=== PATIENT | male | born 1930 | race Caucasian/White ===

== ENCOUNTER 2017-01-15 10:01 | Emergency (ER) | payer MEDICARE ==
[~2017-01-15] VITALS: Ht 167.6 cm; Wt 60.0 kg
[~2017-01-15 10:01] MED LIST: 1-ME1LIQ PO; ATOR40TA PO; FERR324T4 PO; GLUCTAB PO; LOSA25TA31 PO; METO50TA PO; OMEP20TA PO; SUCR1TAB PO
[2017-01-15 10:06] VITALS: BP 127/64; PULSE 100; RESP 24; TEMP 98.4; O2SAT 94
[2017-01-15] MEDS ORDERED: AMLO2.5T PO (11:11)
[2017-01-15] MEDS ORDERED: OMEP20TA93 PO (11:11)
[2017-01-15] MEDS ORDERED: ATOR80TA45 PO (11:11)
[2017-01-15] MEDS ORDERED: FERR325C PO (11:11)
[2017-01-15] MEDS ORDERED: SUCR1TAB PO (11:11)
[2017-01-15] MEDS ORDERED: METO50TA PO (11:11)
[2017-01-15] MEDS ORDERED: LOSA25TA PO (11:11)
[2017-01-15] MEDS ORDERED: ALLE60TA PO (11:17)
--- NOTE | 2017-01-15 11:18 | PD ---
HPI . Nosebleed Chief Complaint: Nosebleed Time Seen by Provider: 11:07 Travel History International Travel<30 days: No Contact w/Intl Traveler<30days: No Traveled to known affect area: No History of Present Illness HPI This patient presents with a chief complaint of epistaxis. Onset was yesterday. He is bleeding from the right near. The bleeding has waxed and waned. It has been pretty mild. He states that he has had an associated cold with some rhinorrhea and coughing. He does not describe any purulent rhinorrhea or sputum production. He has not been running fever. PFSH Past Medical History Hx Anticoagulant Therapy: Yes Arthritis: No Asthma: No Blood Disorders: No Anxiety: No Depression: No Heart Rhythm Problems: No Cancer: Yes (prostate (2001)) Cardiac Catheterization: No Cardiovascular Problems: Yes (HTN) High Cholesterol: Yes Chemotherapy: No Chest Pain: No Congestive Heart Failure: No COPD: No Cerebrovascular Accident: No Diabetes: Yes Patient Takes Glucophage: No Diminished Hearing: No Endocrine: Yes GERD: Yes Glaucoma: No Genitourinary: Yes (hematuria) Headaches: No Hepatitis: No Hiatal Hernia: Yes Hypertension: Yes Immune Disorder: No Kidney Stones: No Musculoskeletal: No Neurologic: No Psychiatric: No Reproductive: Yes (prostate cancer) Respiratory: No Myocardial Infarction: No Radiation Therapy: Yes Renal Failure: No Seizures: No Sickle Cell Disease: No Sleep Apnea: No Thyroid Disease: No Ulcer: No Past Surgical History Surgical History: No Previous Surgery AICD: No Coronary Artery Bypass Graft: No Pacemaker: No Other Surgery: No Social History Alcohol Use: Yes (OCC 1/2 GLASS OF WINE) Tobacco Use: No Substance Use: No Allergies-Medications (Allergen,Severity, Reaction): Coded Allergies: No Known Allergies (Verified Adverse Reaction, Unknown, 01/15/17) Reported Meds & Prescriptions Reported Meds & Active Scripts Active Reported Omeprazole 20 Mg Tab 20 Mg PO DAILY Sucralfate 1 Gram Tab 1 Gm PO TID on empty stomach Metoprolol Tartrate 50 Mg Tab 50 Mg PO BID Atorvastatin (Atorvastatin Calcium) 80 Mg Tab 80 Mg PO HS Amlodipine (Amlodipine Besylate) 2.5 Mg Tab 2.5 Mg PO DAILY Losartan (Losartan Potassium) 25 Mg Tab 25 Mg PO DAILY Iron (Ferrous Sulfate) 325 Mg Cap 325 Mg PO DAILY Review of Systems Except as stated in HPI: all other systems reviewed are Neg General / Constitutional: No: Fever, Chills HENT: Positive: Congestion, Nosebleed Respiratory: Positive: Cough Physical Exam Narrative GENERAL: Elderly patient who is awake and alert and in no acute distress. SKIN: Warm and dry. Good color and turgor. HEAD: Normocephalic/atraumatic. EYES: Pupils are equal. Extraocular movements are intact. ENT: No evidence of bleeding at this time. NECK: Supple. CARDIOVASCULAR: Heart sounds are normal. RESPIRATORY: Lungs are clear with full air movement throughout. MUSCULOSKELETAL: Atraumatic. NEUROLOGICAL: Nonfocal. PSYCHIATRIC: Appropriate mood and affect. Data Data Last Documented VS Vital Signs Date Time Temp Pulse Resp B/P (MAP) Pulse Ox O2 Delivery O2 Flow Rate FiO2 01/15/17 10:06 98.4 100 24 127/64 (85) 94 Room Air [facility] Medical Decision Making Medical Screen Exam Complete: Yes Emergency Medical Condition: Yes Differential Diagnosis Differential diagnosis includes but is not limited to epistaxis due to an upper respiratory infection, coagulopathy, local trauma, nasal fracture Narrative Course This patient presents with epistaxis associated with an upper respiratory infection. He has no bleeding currently. I will discharge him with instructions to take an antihistamine and to take inside of his nose with Vaseline at least once a day at bedtime. Return for bleeding which is uncontrolled by direct pressure for 10 minutes. Diagnosis Primary Impression: Epistaxis Additional Impression: Upper respiratory infection Qualified Codes: J06.9 - Acute upper respiratory infection, unspecified Patient Instructions: Epistaxis (DC), General Instructions, Upper Respiratory Infection (DC) Additional Instructions: Use a Q-tip to put some Vaseline on the inside of your nose every night at bedtime the bleeding has completely stopped. Med/Other Pt SpecificInfo: Prescription(s) given Scripts Fexofenadine (Terrie Allergy) 60 Mg Tab 60 MG PO BID for Allergy Management, #60 TAB 0 Refills Prov: Carito Reese MD 01/15/17 Disposition: 01 DISCHARGE HOME Condition: Stable Carito Reese MD Jan 15, 2017 11:18
== END 2017-01-15 11:52 | disposition home or self-care (01) ==
LOC: NEPE 10:01
DX: R04.0 Epistaxis (principal); J06.9 Acute upper respiratory infection, unspecified; I10 Essential (primary) hypertension; E78.00 Pure hypercholesterolemia, unspecified; E11.9 Type 2 diabetes mellitus without complications; K21.9 Gastro-esophageal reflux disease without esophagitis; Z85.46 Personal history of malignant neoplasm of prostate; Z79.899 Other long term (current) drug therapy
CPT/HCPCS: 99282

== ENCOUNTER 2017-02-13 14:49 | Inpatient (IN) | payer MEDICARE ==
[~2017-02-13] VITALS: Ht 170.2 cm; Wt 61.4 kg
[~2017-02-13 14:49] MED LIST changes: -1-ME1LIQ PO; +ALLE60TA PO; +AMLO2.5T PO; -ATOR40TA PO; +ATOR80TA45 PO; -FERR324T4 PO; +FERR325C PO; -GLUCTAB PO; +LOSA25TA PO; -LOSA25TA31 PO; -OMEP20TA PO; +OMEP20TA93 PO
--- NOTE | 2017-02-13 15:26 | PD ---
HPI Chief Complaint: fall, head injury, hip injury Time Seen by Provider: 15:21 Travel History International Travel<30 days: No Contact w/Intl Traveler<30days: No Traveled to known affect area: No History of Present Illness HPI 86-year-old male patient presents to the ER brought in by his son, apparently he had been helping his son move something when he lost balance and fell, is complaining of right hip pains, and is shortened, had hit his head but had no loss consciousness according to his son. He currently denies any other issues or injuries. Modifying Factors: None Associated Signs & Symptoms: Lost balance and fall, right hip injury, head injury Risk Factors: Elderly PFSH Past Medical History Hx Anticoagulant Therapy: Yes Arthritis: No Asthma: No Blood Disorders: No Anxiety: No Depression: No Heart Rhythm Problems: No Cancer: Yes (prostate (2001)) Cardiac Catheterization: No Cardiovascular Problems: Yes (HTN) High Cholesterol: Yes Chemotherapy: No Chest Pain: No Congestive Heart Failure: No COPD: No Cerebrovascular Accident: No Diabetes: Yes Diminished Hearing: No Endocrine: Yes GERD: Yes Glaucoma: No Genitourinary: Yes (hematuria) Headaches: No Hepatitis: No Hiatal Hernia: Yes Hypertension: Yes Immune Disorder: No Kidney Stones: No Musculoskeletal: No Neurologic: No Psychiatric: No Reproductive: Yes (prostate cancer) Respiratory: No Myocardial Infarction: No Radiation Therapy: Yes Renal Failure: No Seizures: No Sickle Cell Disease: No Sleep Apnea: No Thyroid Disease: No Ulcer: No Past Surgical History AICD: No Coronary Artery Bypass Graft: No Pacemaker: No Other Surgery: No Social History Alcohol Use: Yes (OCC 1/2 GLASS OF WINE) Tobacco Use: No Substance Use: No Allergies-Medications (Allergen,Severity, Reaction): Coded Allergies: No Known Allergies (Verified Adverse Reaction, Unknown, 02/13/17) Reported Meds & Prescriptions Reported Meds & Active Scripts Active Reported Ferrous Sulfate 325 Mg (65 Mg Iron) Tablet 325 Mg PO DAILY Omeprazole 20 Mg Tab 20 Mg PO DAILY Sucralfate 1 Gram Tab 1 Gm PO TID on empty stomach Metoprolol Tartrate 50 Mg Tab 50 Mg PO BID Atorvastatin (Atorvastatin Calcium) 80 Mg Tab 80 Mg PO HS Amlodipine (Amlodipine Besylate) 2.5 Mg Tab 2.5 Mg PO DAILY Losartan (Losartan Potassium) 25 Mg Tab 25 Mg PO DAILY Review of Systems Except as stated in HPI: all other systems reviewed are Neg Physical Exam Narrative GENERAL: Pleasant elderly white male patient currently in mild distress. Awake and oriented 3. SKIN: Focused skin assessment warm/dry. HEAD: Small 1 cm abrasion to the right forehead. Normocephalic. EYES: Pupils equal and round. No scleral icterus. No injection or drainage. ENT: No nasal bleeding or discharge. Mucous membranes pink and moist. NECK: Trachea midline. No JVD. CARDIOVASCULAR: Regular rate and rhythm. No murmur appreciated. RESPIRATORY: No accessory muscle use. Clear to auscultation. Breath sounds equal bilaterally. GASTROINTESTINAL: Abdomen soft, non-tender, nondistended. Hepatic and splenic margins not palpable. MUSCULOSKELETAL: No obvious deformities. No clubbing. No cyanosis. No edema. Pelvis: Stable, tender to palpation of the right hip, and there is notable shortening of the right limb. NEUROLOGICAL: Awake and alert. No obvious cranial nerve deficits. Motor grossly within normal limits. Normal speech. PSYCHIATRIC: Appropriate mood and affect; insight and judgment normal. Data Data Last Documented VS Vital Signs Date Time Temp Pulse Resp B/P (MAP) Pulse Ox O2 Delivery O2 Flow Rate FiO2 02/13/17 17:46 94 02/13/17 17:45 72 16 153/83 (106) Room Air Orders Orders Electrocardiogram (02/13/17 15:21) Complete Blood Count With Diff (02/13/17 15:21) Comprehensive Metabolic Panel (02/13/17 15:21) Prothrombin Time / Inr (Pt) (02/13/17 15:21) Act Partial Throm Time (Ptt) (02/13/17 15:21) Urinalysis - C+S If Indicated (02/13/17 15:21) Chest, Single Ap (02/13/17 15:21) Hip, Uni(Ap&Lat) W Ap Pelvis (02/13/17 15:21) Iv Access Insert/Monitor (02/13/17 15:21) Oximetry (02/13/17 15:21) Ecg Monitoring (02/13/17 15:21) Sodium Chloride 0.9% Flush (Ns Flush) (02/13/17 15:30) Ct Brain W/O Iv Contrast(Rout) (02/13/17 15:21) Morphine Inj (Morphine Inj) (02/13/17 16:30) Ondansetron Inj (Zofran Inj) (02/13/17 16:30) Lidocai-Epi 1%-1:100,000 Inj (Xylocaine- (02/13/17 17:00) Admit Order (Ed Use Only) (02/13/17 18:20) Labs Laboratory Tests Test 02/13/17 15:44 02/13/17 16:40 White Blood Count 3.6 TH/MM3 Red Blood Count 2.54 MIL/MM3 Hemoglobin 7.9 GM/DL Hematocrit 24.3 % Mean Corpuscular Volume 95.7 FL Mean Corpuscular Hemoglobin 31.0 PG Mean Corpuscular Hemoglobin Concent 32.4 % Red Cell Distribution Width 22.3 % Platelet Count 87 TH/MM3 Mean Platelet Volume 8.2 FL Neutrophils (%) (Auto) 84.9 % Lymphocytes (%) (Auto) 8.7 % Monocytes (%) (Auto) 3.4 % Eosinophils (%) (Auto) 1.2 % Basophils (%) (Auto) 1.8 % Neutrophils # (Auto) 3.0 TH/MM3 Lymphocytes # (Auto) 0.3 TH/MM3 Monocytes # (Auto) 0.1 TH/MM3 Eosinophils # (Auto) 0.0 TH/MM3 Basophils # (Auto) 0.1 TH/MM3 CBC Comment AUTO DIFF Differential Comment AUTO DIFF CONFIRMED Platelet Estimate LOW Platelet Morphology Comment NORMAL Ovalocytes 1+ Acanthocytes 1+ Prothrombin Time 16.2 SEC Prothromb Time International Ratio 1.6 RATIO Activated Partial Thromboplast Time 25.8 SEC Blood Urea Nitrogen 22 MG/DL Creatinine 0.92 MG/DL Random Glucose 130 MG/DL Total Protein 6.4 GM/DL Albumin 3.5 GM/DL Calcium Level 8.3 MG/DL Alkaline Phosphatase 96 U/L Aspartate Amino Transf (AST/SGOT) 21 U/L Alanine Aminotransferase (ALT/SGPT) 18 U/L Total Bilirubin 1.3 MG/DL Sodium Level 140 MEQ/L Potassium Level 4.6 MEQ/L Chloride Level 106 MEQ/L Carbon Dioxide Level 25.3 MEQ/L Anion Gap 9 MEQ/L Estimat Glomerular Filtration Rate 78 ML/MIN Urine Color YELLOW Urine Turbidity CLEAR Urine pH 6.5 Urine Specific [place] 1.017 Urine Protein TRACE mg/dL Urine Glucose (UA) NEG mg/dL Urine Ketones NEG mg/dL Urine Occult Blood LARGE Urine Nitrite NEG Urine Bilirubin NEG Urine Urobilinogen 2.0 MG/DL Urine Leukocyte Esterase NEG Urine RBC 77 /hpf Urine WBC 1 /hpf Urine Mucus FEW /lpf Microscopic Urinalysis Comment CATH-CULT NOT IND MDM Medical Decision Making Medical Screen Exam Complete: Yes Emergency Medical Condition: Yes Medical Record Reviewed: Yes Interpretation(s) Laboratory Tests Test 02/13/17 15:44 02/13/17 16:40 White Blood Count 3.6 TH/MM3 (4.0-11.0) Red Blood Count 2.54 MIL/MM3 (4.50-5.90) Hemoglobin 7.9 GM/DL (13.0-17.0) Hematocrit 24.3 % (39.0-51.0) Red Cell Distribution Width 22.3 % (11.6-17.2) Platelet Count 87 TH/MM3 (150-450) Neutrophils (%) (Auto) 84.9 % (16.0-70.0) Lymphocytes (%) (Auto) 8.7 % (9.0-44.0) Lymphocytes # (Auto) 0.3 TH/MM3 (1.0-4.8) Platelet Estimate LOW (NORMAL) Ovalocytes 1+ (NORMAL) Acanthocytes 1+ (NORMAL) Prothrombin Time 16.2 SEC (9.8-11.6) Blood Urea Nitrogen 22 MG/DL (7-18) Random Glucose 130 MG/DL (74-106) Calcium Level 8.3 MG/DL (8.5-10.1) Total Bilirubin 1.3 MG/DL (0.2-1.0) Estimat Glomerular Filtration Rate 78 ML/MIN (>89) Urine Occult Blood LARGE (NEG) Urine RBC 77 /hpf (0-3) Urine Mucus FEW /lpf (OCC) Last 24 hours Impressions Hip and Pelvis X-Ray 02/13/17 1521 Signed Impressions: Service Date/Time: Monday, February 13, 2017 16:23 - CONCLUSION: Fractured right femoral neck. Raheem Jarvis MD Head CT 02/13/171520 Signed Impressions: Service Date/Time: Monday, February 13, 2017 17:00 - CONCLUSION: 1. Generalized atrophy. 2. No evidence of acute infarct, hemorrhage, mass or edema. 3. Mucosal thickening right maxillary sinus. Raheem Jarvis MD Chest X-Ray 02/13/17 1521 Signed Impressions: Service Date/Time: Monday, February 13, 2017 16:23 - CONCLUSION: 1. Hypoaerated lungs with interstitial disease characteristic of restrictive lung disease and pulmonary fibrosis. 2. No evidence of consolidating airspace disease. Raheem Jarvis MD Differential Diagnosis Fall, rule out intracranial injuries versus hip fractures versus contusions versus concussion Narrative Course X-ray shows a right hip fracture. CAT scan the brain did not show any signs of acute intracranial injuries. Case was discussed with Dr. Barrett who would like the patient to be medically admitted for further treatment. 5 pound box traction and nothing by mouth after midnight. Case was discussed with Dr. Aguayo for admission. Diagnosis Primary Impression: Fall at home Additional Impressions: Closed head injury Hip injury Admitting Information Admitting Physician Requests: Admit Gerri Aparicio MD Feb 13, 2017 15:26
[2017-02-13] MEDS ORDERED: SODIUM CHLORIDE 0.9% FLUSH 10 ML FLUSH IVF PRN (15:30)
[2017-02-13] MEDS ORDERED: FERR325T18 PO (15:40)
[2017-02-13 15:47] VITALS: BP 119/54; PULSE 76; RESP 18; O2SAT 96
[2017-02-13 15:53] VITALS: BP 119/54; PULSE 76; RESP 18; O2SAT 96
[2017-02-13 16:08] LABS: BASOPHIL # 0.1 TH/MM3 (0-0.2); BASOPHIL % 1.8 % (0.0-2.0); EOSINOPHIL % 1.2 % (0.0-4.0); HEMATOCRIT 24.3 % (39.0-51.0); LYMPH % 8.7 % (9.0-44.0); LYMPHOCYTE # 0.3 TH/MM3 (1.0-4.8); MEAN CELL VOLUME 95.7 FL (80.0-100.0); MEAN CORPUSCULAR HGB CONC 32.4 % (32.0-36.0); MONO % 3.4 % (0.0-8.0); NEUT % 84.9 % (16.0-70.0); PLATELET COUNT 87 TH/MM3 (150-450); RED BLOOD COUNT 2.54 MIL/MM3 (4.50-5.90); RED CELL DISTRIBUTION WIDTH 22.3 % (11.6-17.2); WHITE BLOOD COUNT 3.6 TH/MM3 (4.0-11.0)
[2017-02-13 16:12] LABS: HEMO FLAGS AUTO DIFF
[2017-02-13 16:28] LABS: ALT (GPT) 18 U/L (12-78); ANION GAP 9 MEQ/L (5-15); AST (GOT) 21 U/L (15-37); BICARBONATE 25.3 MEQ/L (21.0-32.0); BLOOD UREA NITROGEN 22 MG/DL (7-18); CHLORIDE 106 MEQ/L (98-107); GLOMERULAR FILTRATION RATE 78 ML/MIN (>89); POTASSIUM 4.6 MEQ/L (3.5-5.1); SODIUM (NA) 140 MEQ/L (136-145)
[2017-02-13 16:30] LABS: ALKALINE PHOSPHATASE 96 U/L (45-117); TOTAL BILIRUBIN ADULT 1.3 MG/DL (0.2-1.0)
[2017-02-13] MEDS ORDERED: MORPHINE SULFATE 2 MG/ML INJ IV PUSH ONE (16:30)
[2017-02-13] MEDS ORDERED: ONDANSETRON HCL 4 MG/2 ML VIAL IV PUSH ONE (16:30)
[2017-02-13 16:41] LABS: APTT (PATIENT) 25.8 SEC (24.3-30.1); INTERNATIONAL NORMALIZED RATIO 1.6 RATIO; PROTHROMBIN TIME - PATIENT 16.2 SEC (9.8-11.6)
--- NOTE | 2017-02-13 16:46 | RADRPT ---
EXAM DATE/TIME: 02/13/2017 16:23 [facility] COMPARISON: No previous studies available for comparison. INDICATIONS : Evaluate for pneumonia, pneumothorax, or communicable disease. Pre op hip surgery. MEDICAL HISTORY : Hernia, hiatal. Carcinoma, prostate. SURGICAL HISTORY : None. ENCOUNTER: Initial ACUITY: 1 day PAIN SCORE: 0/10 LOCATION: Bilateral chest FINDINGS: Lungs are hypoaerated. There is diffuse interstitial lung disease with honeycombing identified in the bases. There is no evidence of consolidating airspace disease. Mild pleural thickening is seen in the left upper lobe. Heart is within normal limits in size. CONCLUSION: 1. Hypoaerated lungs with interstitial disease characteristic of restrictive lung disease and pulmona ry fibrosis. 2. No evidence of consolidating airspace disease. Raheem Jarvis MD on February 13, 2017 at 16:42 Board Certified Radiologist. This report was verified electronically.
[2017-02-13 16:57] LABS: ACANTHOCYTES 1+ (NORMAL); OVALOCYTES 1+ (NORMAL); PLATELET ESTIMATE SMEAR LOW (NORMAL); PLATELET MORPHOLOGY NORMAL (NORMAL); SCAN/DIFF AUTO DIFF CONFIRMED
[2017-02-13 16:59] LABS: BLOOD, URINE LARGE (NEG); GLUCOSE,URINE NEG (NEG); KETONE, URINE NEG (NEG); MUCUS URINE FEW /lpf (OCC); NITRITE,URINE NEG (NEG); PH, URINE 6.5 (5.0-8.5); URINE COLOR YELLOW (YELLW/STRAW)
[2017-02-13 17:00] LABS: COMMENT (UR) CATH-CULT NOT IND; CULTURE IF INDICATED CATH CULTURE NOT IND
[2017-02-13] MEDS ORDERED: LIDOCAINE 1%/EPINEPHrine 1:100,000 SOLN 20 ML VIAL INFIL ONE (17:00)
--- NOTE | 2017-02-13 17:26 | RADRPT ---
EXAM DATE/TIME: 02/13/2017 16:23 [facility] COMPARISON: No previous studies available for comparison. INDICATIONS : Right hip pain after fall. MEDICAL HISTORY : None. SURGICAL HISTORY : None. ENCOUNTER: Initial ACUITY: 1 day PAIN SCORE: 10/10 LOCATION: Right hip. FINDINGS: A. a basicervical fracture the right femoral neck is noted. Bony pelvis is intact. CONCLUSION: Fractured right femoral neck. aRheem Jarvis MD on February 13, 2017 at 17:24 Board Certified Radiologist. This report was verified electronically.
[2017-02-13 17:45] VITALS: BP 153/83; PULSE 72; RESP 16; O2SAT 95
--- NOTE | 2017-02-13 18:07 | RADRPT ---
EXAM DATE/TIME: 02/13/2017 17:00 [facility] COMPARISON: CT BRAIN W/O CONTRAST, May 10, 2010, 18:32. INDICATIONS : Fall two days,laceration and hematoma right side of head RADIATION DOSE: 56.35 CTDIvol (mGy) MEDICAL HISTORY : Hypertension. Carcinoma, prostate. SURGICAL HISTORY : None. ENCOUNTER: Initial ACUITY: 1 day PAIN SCALE: 9/10 LOCATION: Right cranial TECHNIQUE: Multiple contiguous axial images were obtained of the head. Using automated exposure control and adj ustment of the mA and/or kV according to patient size, radiation dose was kept as low as reasonably a chievable to obtain optimal diagnostic quality images. DICOM format image data is available electro nically for review and comparison. FINDINGS: There is marked central and cortical atrophy with dilatation of ventricular and sulcal spaces. There is no parenchymal hemorrhage, acute infarction or mass lesion identified. There are no extra-axial fluid collections appreciated. The posterior fossa is unremarkable with midline fourth ventricle. T he portion of the orbits and paranasal sinuses visualized are unremarkable. Mucosal inflammatory disease is identified in the right maxillary sinus. CONCLUSION: 1. Generalized atrophy. 2. No evidence of acute infarct, hemorrhage, mass or edema. 3. Mucosal thickening right maxillary sinus. Raheem Jarvis MD on February 13, 2017 at 18:03 Board Certified Radiologist. This report was verified electronically.
--- NOTE | 2017-02-13 18:35 | HHI.HP ---
[facility] Service Family Medicine Primary Care Physician Jen [facility] Admission Diagnosis right hip fracture, fall, close head injury Diagnoses: International Travel<30 Days: No Contact w/Intl Traveler<30days: No Known Affected Area: No History of Present Illness 86-year-old male being seen for right hip fracture. Earlier today he was lifting a "hand truck" and placement into the back of vehicle when he lost his balance and fell. He fell on his right hip, elbow and head. He did not lose consciousness. Per the ED, he had a laceration on his right scalp that required stitching. The patient complains of pain at his right hip and where he landed on his head. Otherwise, he is without complaint. He denies chest pain, nausea, vomiting, fever, chills, confusion. Review of Systems Constitutional: DENIES: Fever, Chills Eyes: DENIES: Blurred vision, Diplopia Respiratory: DENIES: Cough, Shortness of breath Cardiovascular: DENIES: Chest pain, Palpitations Gastrointestinal: DENIES: Abdominal pain, Bloody stools Musculoskeletal: COMPLAINS OF: Joint pain Psychiatric: DENIES: Anxiety, Confusion Past Family Social History Past Medical History Iron deficiency GERD Hyperlipidemia High blood pressure Past Surgical History Left ear- removed a cancer Reported Medications Reported Meds & Active Scripts Active Reported Ferrous Sulfate 325 Mg (65 Mg Iron) Tablet 325 Mg PO DAILY Omeprazole 20 Mg Tab 20 Mg PO DAILY Sucralfate 1 Gram Tab 1 Gm PO TID on empty stomach Metoprolol Tartrate 50 Mg Tab 50 Mg PO BID Atorvastatin (Atorvastatin Calcium) 80 Mg Tab 80 Mg PO HS Amlodipine (Amlodipine Besylate) 2.5 Mg Tab 2.5 Mg PO DAILY Losartan (Losartan Potassium) 25 Mg Tab 25 Mg PO DAILY Allergies: Coded Allergies: No Known Allergies (Verified Adverse Reaction, Unknown, 02/13/17) Active Ordered Medications Active Medications Amlodipine Besylate (Norvasc) 2.5 mg DAILY PO; Start 02/14/17 at 09:00 Atorvastatin Calcium (Lipitor) 80 mg HS PO; Start 02/13/17 at 21:00 Bisacodyl (Dulcolax Supp) 10 mg DAILY PRN RECTAL; Start 02/13/17 at 19:00 Ferrous Sulfate (Ferrous Sulfate) 325 mg DAILY PO; Start 02/14/17 at 09:00 Lactulose (Lactulose Liq) 30 ml DAILY PRN PO; Start 02/13/17 at 19:00 Lidocaine/ Epinephrine (Xylocaine-Epi 1%-1:100,000 Inj) 30 ml ONCE ONCE INFIL; Start 02/13/17 at 17:00; Stop 02/13/17 at 17:01; Status DC Losartan Potassium (Cozaar) 25 mg DAILY PO; Start 02/14/17 at 09:00 Magnesium Hydroxide (Milk Of Magnesia Liq) 30 ml Q12H PRN PO; Start 02/13/17 at 19:00 Metoprolol Tartrate (Lopressor) 50 mg BID PO; Start 02/13/17 at 21:00 Morphine Sulfate (Morphine Inj) 2 mg ONCE ONCE IV PUSH Last administered on 16:53; Admin Dose 2 MG; Start 02/13/17 at 16:30; Stop 02/13/17 at 16:31; Status DC Morphine Sulfate (Morphine Inj) 2 mg Q3H PRN IM; Start 02/13/17 at 19:15 Naloxone HCl (Narcan Inj) 0.4 mg UNSCH PRN IV PUSH; Start 02/13/17 at 19:00 Ondansetron HCl (Zofran Inj) 4 mg ONCE ONCE IV PUSH Last administered on 16:53; Admin Dose 4 MG; Start 02/13/17 at 16:30; Stop 02/13/17 at 16:31; Status DC Ondansetron HCl (Zofran Inj) 4 mg Q6H PRN IVP; Start 02/13/17 at 19:00 Pantoprazole Sodium (Protonix) 20 mg DAILY PO; Start 02/14/17 at 09:00 Senna/Docusate Sodium (Rosette-Colace) 1 tab BID PO; Start 02/13/17 at 21:00 Sennosides (Senokot) 17.2 mg Q12H PRN PO; Start 02/13/17 at 19:00 Sodium Chloride 1,000 ml @ 100 mls/hr Q10H IV Last administered on 02/13/17 19 :35; Admin Dose 100 MLS/HR; Start 02/13/17 at 18:46 Sodium Chloride (NS Flush) 2 ml BID IV FLUSH; Start 02/13/17 at 21:00 Sodium Chloride (NS Flush) 2 ml UNSCH PRN IV FLUSH; Start 02/13/17 at 19:00 Sodium Chloride (NS Flush) 2 ml UNSCH PRN IVF; Start 02/13/17 at 15:30; Stop 02/13/17 at 18:53; Status DC Sucralfate (Carafate) 1 gm TID PO; Start 02/14/17 at 09:00 Family History Mom: none that he knows of Dad: lung cancer Social History Quit smoking 40-50 years ago. "light smoker before" Alcohol: on special occasions Lives by himself in a one story building. Independent of ADL and IADLs Physical Exam Vital Signs Vital Signs Date Time Temp Pulse Resp B/P (MAP) Pulse Ox O2 Delivery O2 Flow Rate FiO2 02/13/17 17:46 94 02/13/17 17:45 72 16 153/83 (106) 95 Room Air 02/13/17 15:53 76 18 119/54 (75) 96 02/13/17 15:47 76 18 119/54 (75) 96 Room Air Physical Exam GENERAL: Pleasant elderly male lying comfortably in bed. No acute distress. SKIN: Cool and dry. HEAD: Small 1 cm abrasion to right forehead. Normocephalic. EYES: Pupils equal round and reactive. Extraocular motions intact. No scleral icterus. No injection or drainage. ENT: Nose without bleeding, purulent drainage or septal hematoma. Throat without erythema, tonsillar hypertrophy or exudate. Uvula midline. Airway patent. NECK: Trachea midline. No JVD or lymphadenopathy. Supple, nontender, no meningeal signs. CARDIOVASCULAR: Regular rate and rhythm without murmurs, gallops, or rubs. RESPIRATORY: Clear to auscultation. Breath sounds equal bilaterally. No wheezes , rales, or rhonchi. GASTROINTESTINAL: Abdomen soft, non-tender, nondistended. No hepato-splenomegaly , or palpable masses. No guarding. Right leg in position of comfort. TTP right hip. NEUROLOGICAL: Awake and alert and oriented x3. Cranial nerves II through XII intact. Motor and sensory grossly within normal limits. Five out of 5 muscle strength in all muscle groups. Normal speech. Laboratory Laboratory Tests Test 02/13/17 15:44 02/13/17 16:40 White Blood Count 3.6 Red Blood Count 2.54 Hemoglobin 7.9 Hematocrit 24.3 Mean Corpuscular Volume 95.7 Mean Corpuscular Hemoglobin 31.0 Mean Corpuscular Hemoglobin Concent 32.4 Red Cell Distribution Width 22.3 Platelet Count 87 Mean Platelet Volume 8.2 Neutrophils (%) (Auto) 84.9 Lymphocytes (%) (Auto) 8.7 Monocytes (%) (Auto) 3.4 Eosinophils (%) (Auto) 1.2 Basophils (%) (Auto) 1.8 Neutrophils # (Auto) 3.0 Lymphocytes # (Auto) 0.3 Monocytes # (Auto) 0.1 Eosinophils # (Auto) 0.0 Basophils # (Auto) 0.1 CBC Comment AUTO DIFF Differential Comment AUTO DIFF CONFIRMED Platelet Estimate LOW Platelet Morphology Comment NORMAL Ovalocytes 1+ Acanthocytes 1+ Prothrombin Time 16.2 Prothromb Time International Ratio 1.6 Activated Partial Thromboplast Time 25.8 Blood Urea Nitrogen 22 Creatinine 0.92 Random Glucose 130 Total Protein 6.4 Albumin 3.5 Calcium Level 8.3 Alkaline Phosphatase 96 Aspartate Amino Transf (AST/SGOT) 21 Alanine Aminotransferase (ALT/SGPT) 18 Total Bilirubin 1.3 Sodium Level 140 Potassium Level 4.6 Chloride Level 106 Carbon Dioxide Level 25.3 Anion Gap 9 Estimat Glomerular Filtration Rate 78 Urine Color YELLOW Urine Turbidity CLEAR Urine pH 6.5 Urine Specific Gate 1.017 Urine Protein TRACE Urine Glucose (UA) NEG Urine Ketones NEG Urine Occult Blood LARGE Urine Nitrite NEG Urine Bilirubin NEG Urine Urobilinogen 2.0 Urine Leukocyte Esterase NEG Urine RBC 77 Urine WBC 1 Urine Mucus FEW Microscopic Urinalysis Comment CATH-CULT NOT IND Result Diagram: 02/13/17 1544 02/13/17 1544 Imaging Last Impressions Hip and Pelvis X-Ray 02/13/17 1521 Signed Impressions: Service Date/Time: Monday, February 13, 2017 16:23 - CONCLUSION: Fractured right femoral neck. Raheem Jarvis MD Head CT 02/13/17 1521 Signed Impressions: Service Date/Time: Monday, February 13, 2017 17:00 - CONCLUSION: 1. Generalized atrophy. 2. No evidence of acute infarct, hemorrhage, mass or edema. 3. Mucosal thickening right maxillary sinus. Raheem Jarvis MD Chest X-Ray 02/13/17 1521 Signed Impressions: Service Date/Time: Monday, February 13, 2017 16:23 - CONCLUSION: 1. Hypoaerated lungs with interstitial disease characteristic of restrictive lung disease and pulmonary fibrosis. 2. No evidence of consolidating airspace disease. Raheem Jarvis MD Caprinnaveed VTE Risk Assessment Caprini VTE Risk Assessment: Mod/High Risk (score >= 2) Caprini Risk Assessment Model Point Value = 1 Point Value = 2 Point Value = 3 Point Value = 5 Age 41-60 Minor surgery BMI > 25 kg/m2 Swollen legs Varicose veins or History of unexplained or recurrent spontaneous Oral contraceptives or hormone replacement Sepsis (< 1 month) Serious lung disease, including pneumonia (< 1 month) Abnormal pulmonary function Acute myocardial infarction Congestive heart failure (< 1 month) History of inflammatory bowel disease Medical patient at bed rest Age 61-74 Arthroscopic surgery Major open surgery (> 45 min) Laparoscopic surgery (> 45 min) Malignancy Confined to bed (> 72 hours) Immobilizing plaster cast Central venous access Age >= 75 History of VTE Family history of VTE Factor V Leiden Prothrombin [id number] Lupus anticoagulant Anticardiolipin antibodies Elevated serum homocysteine Heparin-induced thrombocytopenia Other congenital or acquired thrombophilia Stroke (< 1 month) Elective arthroplasty Hip, pelvis, or leg fracture Acute spinal cord injury (< 1 month) Prophylaxis Regimen Total Risk Factor Score Risk Level Prophylaxis Regimen 0-1 Low Early ambulation 2 Moderate Order ONE of the following: *Sequential Compression Device (SCD) *Heparin 5000 units SQ BID 3-4 Higher Order ONE of the following medications: *Heparin 5000 units SQ TID *Enoxaparin/Lovenox 40 mg SQ daily (WT < 150 kg, CrCl > 30 mL/min) *Enoxaparin/Lovenox 30 mg SQ daily (WT < 150 kg, CrCl > 10-29 mL/min) *Enoxaparin/Lovenox 30 mg SQ BID (WT < 150 kg, CrCl > 30 mL/min) AND/OR *Sequential Compression Device (SCD) 5 or more Highest Order ONE of the following medications: *Heparin 5000 units SQ TID (Preferred with Epidurals) *Enoxaparin/Lovenox 40 mg SQ daily (WT < 150 kg, CrCl > 30 mL/min) *Enoxaparin/Lovenox 30 mg SQ daily (WT < 150 kg, CrCl > 10-29 mL/min) *Enoxaparin/Lovenox 30 mg SQ BID (WT < 150 kg, CrCl > 30 mL/min) AND *Sequential Compression Device (SCD) Assessment and Plan Assessment and Plan 86 year old male being admitted for right hip fracture. Orthopedic surgery consultation. Code Status DNR Discussed Condition With ED physician ED spoke with orthopedic surgeon Problem List: (1) Hip fracture ICD Codes: S72.009A - Fracture of unspecified part of neck of unspecified femur , initial encounter for closed fracture Status: Acute Plan: The ED spoke with orthopedic surgery. Dr. Bautista Recommended Gipson's traction and nothing by mouth after midnight for surgery tomorrow Morphine 2 mg q3 hour prn pain Further recs per orthopedic surgery, including PT and DVT ppx (2) Hyperlipidemia ICD Codes: E78.5 - Hyperlipidemia, unspecified Status: Chronic Plan: Continue home atorvastatin (3) Hypertension ICD Codes: I10 - Essential (primary) hypertension Status: Chronic Plan: Continue home BP meds (4) FEN/PPX Status: Acute Plan: Fluids: Maintenance NS while NPO Electrolytes: monitor and replace as needed Nutrition: Regular diet, NPO at midnight PPX: SCDs now. Pharm ppx per orthopedic surgery Physician Certification 2 Midnight Certification Type: Admission for Inpatient Services Order for Inpatient Services The services are ordered in accordance with Medicare regulations or non- Medicare payer requirements, as applicable. In the case of services not specified as inpatient-only, they are appropriately provided as inpatient services in accordance with the 2-midnight benchmark. Estimated LOS (days): 2 days is the estimated time the patient will need to remain in the hospital, assuming treatment plan goals are met and no additional complications. Post-Hospital Plan: Not yet determined Problem Qualifiers (1) Hip fracture: Qualified Codes: S72.001A - Fracture of unspecified part of neck of right femur , initial encounter for closed fracture (2) Hyperlipidemia: Qualified Codes: E78.5 - Hyperlipidemia, unspecified (3) Hypertension: Qualified Codes: I10 - Essential (primary) hypertension Carson Stroud MD, R3 Feb 13, 2017 18:35
[2017-02-13] MEDS ORDERED: BISACODYL 10 MG SUPP RECTAL PRN (19:00)
[2017-02-13] MEDS ORDERED: MAGNESIUM HYDROXIDE SUSP 30 ML CUP PO PRN (19:00)
[2017-02-13] MEDS ORDERED: NALOXONE HCL 0.4 MG/ML AMP IV PUSH PRN (19:00)
[2017-02-13] MEDS ORDERED: ONDANSETRON HCL 4 MG/2 ML VIAL IVP PRN (19:00)
[2017-02-13] MEDS ORDERED: SODIUM CHLORIDE 0.9% FLUSH 10 ML FLUSH IV FLUSH PRN (19:00)
[2017-02-13] MEDS ORDERED: SENNOSIDES 8.6 MG TAB PO PRN (19:00)
[2017-02-13] MEDS ORDERED: LACTULOSE SYRUP 20 GM/30 ML CUP PO PRN (19:00)
[2017-02-13] MEDS ORDERED: MORPHINE SULFATE 2 MG/ML INJ IM PRN (19:15)
[2017-02-13 19:20] VITALS: BP 150/69; PULSE 79; RESP 18; O2SAT 93
[2017-02-13] MEDS: SODIUM CHLOR 0.9% 1000 ML INJ 1,000 ML IV SCH ×2 (19:35→21:17)
[2017-02-13] MEDS: ATORVASTATIN 80 MG TAB PO SCH (21:00)
[2017-02-13] MEDS: DOCUSATE SODIUM 50 MG/SENNA 8.6 MG TAB PO SCH (21:00)
[2017-02-13] MEDS: METOPROLOL TARTRATE 50 MG TAB PO SCH (21:00)
[2017-02-13] MEDS: SODIUM CHLORIDE 0.9% FLUSH 10 ML FLUSH IV FLUSH SCH (21:00)
[2017-02-13 21:41] VITALS: BP 108/68; PULSE 66; RESP 16; TEMP 97.7; O2SAT 96
[2017-02-13] MEDS ORDERED: METOPROLOL TARTRATE 25 MG TAB PO PRN (23:30)
[2017-02-13] MEDS ORDERED: SODIUM CHLORID 0.9% 500 ML IV PRN (23:30)
[2017-02-13] MEDS ORDERED: INSULIN HUMAN REGULAR 1,000 UNITS/10 ML VIAL SQ PRN (23:30)
[2017-02-13] MEDS ORDERED: CHLORHEXIDINE GLUCONATE 2 % 1 PACK (2 CLOTHS) TOPICAL PRN (23:30)
[2017-02-13] MEDS ORDERED: POVIDONE IODINE 5% (ANTISEPSIS KIT) 4 APPLICATIONS EACH NARE PRN (23:30)
[2017-02-13] MEDS ORDERED: LACTATED RINGER'S 1000 ML IV PRN (23:30)
[2017-02-14] VITALS (8 sets, daily range): BP systolic 93–147; BP diastolic 51–73; PULSE 68–100; RESP 16–18; TEMP 96–98.6; O2SAT 94–100
[2017-02-14] MEDS: MORPHINE SULFATE 2 MG/ML INJ IV PRN ×2 (02:38→09:14)
[2017-02-14] MEDS: LOSARTAN 25 MG TAB PO SCH (09:00)
[2017-02-14] MEDS: amLODIPine BESYLATE 5 MG TAB PO SCH (09:00)
[2017-02-14] MEDS: DOCUSATE SODIUM 50 MG/SENNA 8.6 MG TAB PO SCH ×2 (09:00→20:20)
[2017-02-14] MEDS: PANTOPRAZOLE SOD 20 MG DELAYED RELEASE TAB PO SCH (09:00)
[2017-02-14] MEDS: SUCRALFATE 1 GM TAB PO SCH ×3 (09:00→17:46)
[2017-02-14] MEDS: METOPROLOL TARTRATE 50 MG TAB PO SCH ×2 (09:12→20:19)
[2017-02-14] MEDS: FERROUS SULFATE 325 MG (65 MG ELEMENTAL IRON) TAB PO SCH (09:15)
[2017-02-14] MEDS: SODIUM CHLORIDE 0.9% FLUSH 10 ML FLUSH IV FLUSH SCH ×2 (09:15→20:19)
[2017-02-14] MEDS: SODIUM CHLOR 0.9% 1000 ML INJ 1,000 ML IV SCH (09:16)
[2017-02-14 09:45] LABS: AUTOMATED NEUTROPHIL # 4.6 TH/MM3 (1.8-7.7); BASOPHIL # 0.1 TH/MM3 (0-0.2); BASOPHIL % 1.8 % (0.0-2.0); EOSINOPHIL % 0.4 % (0.0-4.0); LYMPH % 10.3 % (9.0-44.0); LYMPHOCYTE # 0.6 TH/MM3 (1.0-4.8); MEAN CORPUSCULAR HEMOGLOBIN 31.6 PG (27.0-34.0); MEAN CORPUSCULAR HGB CONC 32.9 % (32.0-36.0); MONO % 3.8 % (0.0-8.0); NEUT % 83.7 % (16.0-70.0); PLATELET COUNT 76 TH/MM3 (150-450); RED BLOOD COUNT 2.09 MIL/MM3 (4.50-5.90); RED CELL DISTRIBUTION WIDTH 21.6 % (11.6-17.2); WHITE BLOOD COUNT 5.5 TH/MM3 (4.0-11.0)
[2017-02-14 09:56] LABS: HEMO FLAGS AUTO DIFF
[2017-02-14 09:59] LABS: HEMATOCRIT 20.1 % (39.0-51.0)
[2017-02-14 10:03] LABS: ANION GAP 9 MEQ/L (5-15); AST (GOT) 34 U/L (15-37); BICARBONATE 22.9 MEQ/L (21.0-32.0); BLOOD UREA NITROGEN 23 MG/DL (7-18); CHLORIDE 107 MEQ/L (98-107); GLOMERULAR FILTRATION RATE 94 ML/MIN (>89); POTASSIUM 4.7 MEQ/L (3.5-5.1); SODIUM (NA) 139 MEQ/L (136-145)
[2017-02-14 10:09] LABS: ALKALINE PHOSPHATASE 93 U/L (45-117); ALT (GPT) 15 U/L (12-78); TOTAL BILIRUBIN ADULT 1.5 MG/DL (0.2-1.0)
[2017-02-14 10:37] LABS: OVALOCYTES 1+ (NORMAL); SCAN/DIFF AUTO DIFF CONFIRMED
[2017-02-14] MEDS ORDERED: ACETAMINOPHEN 1000 MG/100 ML 100 ML IV ONE (11:03)
--- NOTE | 2017-02-14 11:10 | HHI.FPPN ---
Subjective Remarks Patient seen, examined and discussed with the medicine team. This is an 86-year-old male who was working with a hand truck yesterday, his son was helping him, when he lost his balance and fell on his right hip, also striking his right elbow right hand and wrist and his head. Did not lose consciousness. He was brought to the emergency department and had significant bleeding from his scalp wound; this was repaired in the emergency department. He sees a doctor at the [facility], and his medication list is provided. He is not certain regarding his health conditions. Please see history and physical examination for this admission for additional historical details. Patient is somewhat hard of hearing. This morning, he is seen in [facility], with a dressing on his head, right elbow and right wrist. He was able to use the urinal. Plan is for surgery later today. Not complaining of any pain at this point. Objective Vitals Vital Signs Date Time Temp Pulse Resp B/P (MAP) Pulse Ox O2 Delivery O2 Flow Rate FiO2 02/14/17 08:00 97.0 100 16 93/51 (65) 94 02/14/17 07:25 Room Air 02/14/17 05:01 98.0 70 16 115/60 (78) 97 02/14/17 00:56 97.8 72 18 127/73 (91) 96 02/13/17 21:41 97.7 66 16 108/68 (81) 96 02/13/17 19:37 02/13/17 19:20 79 18 150/69 (96) 93 Room Air 02/13/17 17:46 94 02/13/17 17:45 72 16 153/83 (106) 95 Room Air 02/13/17 15:53 76 18 119/54 (75) 96 02/13/17 15:47 76 18 119/54 (75) 96 Room Air I/O 02/13/17 02/13/17 02/13/17 02/14/17 02/14/17 02/14/17 07:00 15:00 23:00 07:00 15:00 23:00 Intake Total 106 ml Output Total 100 ml Balance 6 ml Intake IV Total 106 ml Output Urine Total 100 ml Result Diagram: 02/14/17 0840 02/14/17 0920 Other Results Laboratory Tests Test 02/13/17 15:44 02/13/17 16:40 02/14/17 08:40 02/14/17 09:20 White Blood Count 3.6 TH/MM3 5.5 TH/MM3 Red Blood Count 2.54 MIL/MM3 2.09 MIL/MM3 Hemoglobin 7.9 GM/DL 6.6 GM/DL Hematocrit 24.3 % 20.1 % Mean Corpuscular Volume 95.7 FL 96.0 FL Mean Corpuscular Hemoglobin 31.0 PG 31.6 PG Mean Corpuscular Hemoglobin Concent 32.4 % 32.9 % Red Cell Distribution Width 22.3 % 21.6 % Platelet Count 87 TH/MM3 76 TH/MM3 Mean Platelet Volume 8.2 FL 8.5 FL Neutrophils (%) (Auto) 84.9 % 83.7 % Lymphocytes (%) (Auto) 8.7 % 10.3 % Monocytes (%) (Auto) 3.4 % 3.8 % Eosinophils (%) (Auto) 1.2 % 0.4 % Basophils (%) (Auto) 1.8 % 1.8 % Neutrophils # (Auto) 3.0 TH/MM3 4.6 TH/MM3 Lymphocytes # (Auto) 0.3 TH/MM3 0.6 TH/MM3 Monocytes # (Auto) 0.1 TH/MM3 0.2 TH/MM3 Eosinophils # (Auto) 0.0 TH/MM3 0.0 TH/MM3 Basophils # (Auto) 0.1 TH/MM3 0.1 TH/MM3 CBC Comment AUTO DIFF AUTO DIFF Differential Comment AUTO DIFF CONFIRMED AUTO DIFF CONFIRMED Platelet Estimate LOW Platelet Morphology Comment NORMAL Ovalocytes 1+ 1+ Acanthocytes 1+ Prothrombin Time 16.2 SEC Prothromb Time International Ratio 1.6 RATIO Activated Partial Thromboplast Time 25.8 SEC Blood Urea Nitrogen 22 MG/DL 23 MG/DL Creatinine 0.92 MG/DL 0.78 MG/DL Random Glucose 130 MG/DL 122 MG/DL Total Protein 6.4 GM/DL 6.0 GM/DL Albumin 3.5 GM/DL 3.2 GM/DL Calcium Level 8.3 MG/DL 8.0 MG/DL Alkaline Phosphatase 96 U/L 93 U/L Aspartate Amino Transf (AST/SGOT) 21 U/L 34 U/L Alanine Aminotransferase (ALT/SGPT) 18 U/L 15 U/L Total Bilirubin 1.3 MG/DL 1.5 MG/DL Sodium Level 140 MEQ/L 139 MEQ/L Potassium Level 4.6 MEQ/L 4.7 MEQ/L Chloride Level 106 MEQ/L 107 MEQ/L Carbon Dioxide Level 25.3 MEQ/L 22.9 MEQ/L Anion Gap 9 MEQ/L 9 MEQ/L Estimat Glomerular Filtration Rate 78 ML/MIN 94 ML/MIN Urine Color YELLOW Urine Turbidity CLEAR Urine pH 6.5 Urine Specific Andrews 1.017 Urine Protein TRACE mg/dL Urine Glucose (UA) NEG mg/dL Urine Ketones NEG mg/dL Urine Occult Blood LARGE Urine Nitrite NEG Urine Bilirubin NEG Urine Urobilinogen 2.0 MG/DL Urine Leukocyte Esterase NEG Urine RBC 77 /hpf Urine WBC 1 /hpf Urine Mucus FEW /lpf Microscopic Urinalysis Comment CATH-CULT NOT IND Imaging Last Impressions Hip and Pelvis X-Ray 02/13/171520 Signed Impressions: Service Date/Time: Monday, February 13, 2017 16:23 - CONCLUSION: Fractured right femoral neck. Raheem Jarvis MD Head CT 02/13/171520 Signed Impressions: Service Date/Time: Monday, February 13, 2017 17:00 - CONCLUSION: 1. Generalized atrophy. 2. No evidence of acute infarct, hemorrhage, mass or edema. 3. Mucosal thickening right maxillary sinus. Raheem Jarvis MD Chest X-Ray 02/13/171520 Signed Impressions: Service Date/Time: Monday, February 13, 2017 16:23 - CONCLUSION: 1. Hypoaerated lungs with interstitial disease characteristic of restrictive lung disease and pulmonary fibrosis. 2. No evidence of consolidating airspace disease. Raheem Jarvis MD Objective Remarks GENERAL: Alert, no acute distress, pleasant and hard of hearing. SKIN: No rashes, but he has significant ecchymoses of the digits of his right hand as well as the wrist. Dressing intact on right wrist and right elbow. HEAD: Dressing on head from scalp laceration. EYES: PERRL. EOMI. No conjunctival injection or drainage. Palpebral conjunctiva pale ENT: MMM NECK: Supple, no lymphadenopathy. CARDIOVASCULAR: NRRR. Normal S1/S2. No MRG RESPIRATORY: CTAB. No crackles or wheezes anteriorly. GASTROINTESTINAL: Abdomen soft, non-distended, non-tender. No hepato- splenomegaly or palpable masses. 2 point tattoos midline lower abdomen, patient unable to explain. MUSCULOSKELETAL: Extremities without clubbing, cyanosis, or edema. Does have significant ecchymoses of the right hand and fingers. NEUROLOGICAL: Awake and alert. Cranial nerves II through XII grossly intact. Normal speech. A/P Assessment and Plan 86 year old male being admitted for right hip fracture. Orthopedic surgery anticipated today. Discharge Planning Case management, may need placement. Attending Attestation Patient seen and examined. Case reviewed and discussed with the resident team. Agree with plan of care as discussed with me and documented in the resident note. Problem List: (1) Hip fracture ICD Codes: S72.009A - Fracture of unspecified part of neck of unspecified femur , initial encounter for closed fracture Status: Acute Plan: The ED spoke with orthopedic surgery. Dr. Bautista Recommended Gipson's traction and nothing by mouth after midnight for surgery tomorrow Morphine 2 mg q3 hour prn pain Further recs per orthopedic surgery, including PT and DVT ppx (2) Hyperlipidemia ICD Codes: E78.5 - Hyperlipidemia, unspecified Status: Chronic Plan: Continue home atorvastatin (3) Hypertension ICD Codes: I10 - Essential (primary) hypertension Status: Chronic Plan: Continue home BP meds (4) FEN/PPX Status: Acute Plan: Fluids: Maintenance NS while NPO Electrolytes: monitor and replace as needed Nutrition: Regular diet, NPO at midnight PPX: SCDs now. Pharm ppx per orthopedic surgery Problem Qualifiers (1) Hip fracture: Qualified Codes: S72.001A - Fracture of unspecified part of neck of right femur , initial encounter for closed fracture (2) Hyperlipidemia: Qualified Codes: E78.5 - Hyperlipidemia, unspecified (3) Hypertension: Qualified Codes: I10 - Essential (primary) hypertension Haley Stroud MD Feb 14, 2017 11:10
[2017-02-14] MEDS ORDERED: GENTAMICIN SULFATE 80 MG/2 ML VIAL ONE (11:17)
[2017-02-14] MEDS ORDERED: KETAMINE HCL 500 MG/5 ML VIAL ONE (11:48)
[2017-02-14] MEDS ORDERED: ceFAZolin 2 GM PREMIX 50 ML ONE (11:54)
--- NOTE | 2017-02-14 13:12 | PD.CONS ---
HPI Service Orthopedic Surgeons Consult Requested By Dr. Stroud Reason for Consult Fracture of the right hip [facility] Diagnosis right hip fracture, fall, close head injury Diagnoses: Chief Complaint: Right hip pain History of Present Illness This patient is an 86-year-old white male who yesterday was moving something when he lost his balance and fell striking his right hip, right elbow in the back of his head. He was brought to [facility] emergency room and found to have evidence of a laceration of the head with a contusion of the elbow and a fracture of the right hip. He was admitted to the medical service evaluated and treated. I have been asked to see him in consultation regarding his right hip fracture. Review of Systems Constitutional: DENIES: Diaphoretic episodes, Fatigue, Fever, Weight gain, Weight loss, Chills, Dizziness, Change in appetite, Night Sweats Endocrine: DENIES: Heat/cold intolerance, Polydipsia, Polyuria, Polyphagia Eyes: DENIES: Blurred vision, Diplopia, Eye inflammation, Eye pain, Vision loss , Photosensitivity, Double Vision Ears, nose, mouth, throat: COMPLAINS OF: Hearing loss, DENIES: Tinnitus, Vertigo, Nasal discharge, Oral lesions, Throat pain, Hoarseness, Ear Pain, Running Nose, Epistaxis, Sinus Pain, Toothache, Odynophagia Respiratory: DENIES: Apneas, Cough, Snoring, Wheezing, Hemoptysis, Sputum production, Shortness of breath Cardiovascular: DENIES: Chest pain, Palpitations, Syncope, Dyspnea on Exertion , PND, Lower Extremity Edema, Orthopnea, Claudication Gastrointestinal: DENIES: Abdominal pain, Black stools, Bloody stools, Constipation, Diarrhea, Nausea, Vomiting, Difficulty Swallowing, Anorexia Genitourinary: DENIES: Sexual dysfunction, Urinary frequency, Urinary incontinence, Urgency, Hematuria, Dysuria, Nocturia, Penile Discharge, Testicular Pain, Testicular Swelling Musculoskeletal: COMPLAINS OF: Joint pain, Joint Swelling Integumentary: DENIES: Abnormal pigmentation, Nail changes, Pruritus, Rash Hematologic/lymphatic: COMPLAINS OF: Bruising Immunologic/allergic: DENIES: Eczema, Urticaria Neurologic: COMPLAINS OF: Poor Balance Psychiatric: DENIES: Anxiety, Confusion, Mood changes, Depression, Hallucinations, Agitation, Suicidal Ideation, Homicidal Ideation, Delusions Past Family Social History Allergies: Coded Allergies: No Known Allergies (Verified Adverse Reaction, Unknown, 02/13/17) Active Ordered Medications Current Medications Medications (Trade) Dose Ordered Sig/Constantino Route Start Time Stop Time Status Last Admin (Norvasc) 2.5 mg DAILY PO 02/14/17 09:00 (Lipitor) 80 mg HS PO 02/13/17 21:00 (Ferrous Sulfate) 325 mg DAILY PO 02/14/17 09:00 02/14/17 09:15 (Cozaar) 25 mg DAILY PO 02/14/17 09:00 (Lopressor) 50 mg BID PO 02/13/17 21:00 02/14/17 09:12 (Carafate) 1 gm TID PO 02/14/17 09:00 (Protonix) 20 mg DAILY PO 02/14/17 09:00 Sodium Chloride 1,000 ml @ 100 mls/hr Q10H IV 02/13/17 18:46 02/14/17 09:16 (NS Flush) 2 ml UNSCH PRN IV FLUSH 02/13/17 19:00 (NS Flush) 2 ml BID IV FLUSH 02/13/17 21:00 02/14/17 09:15 (Zofran Inj) 4 mg Q6H PRN IVP 02/13/17 19:00 (Narcan Inj) 0.4 mg UNSCH PRN IV PUSH 02/13/17 19:00 (Rosette-Colace) 1 tab BID PO 02/13/17 21:00 (Milk Of Magnesia Liq) 30 ml Q12H PRN PO 02/13/17 19:00 (Senokot) 17.2 mg Q12H PRN PO 02/13/17 19:00 (Dulcolax Supp) 10 mg DAILY PRN RECTAL 02/13/17 19:00 (Lactulose Liq) 30 ml DAILY PRN PO 02/13/17 19:00 Lactated Ringer's 1,000 ml @ 30 mls/hr Q24H PRN IV 02/13/17 23:30 02/16/17 23:29 Sodium Chloride 500 ml @ 30 mls/hr [id number] PRN IV 02/13/17 23:30 02/16/17 23:29 (Lopressor) 25 mg [employer] PRN PO 02/13/17 23:30 02/16/17 23:29 (Betadine 5% Antisepsis Kit) 1 applic [employer] PRN EACH NARE 02/13/17 23:30 02/16/17 23:29 (Chlorhexidine 2% Cloth) 3 pack [employer] PRN TOPICAL 02/13/17 23:30 02/16/17 23:29 (NovoLIN R INJ) See Protocol Table ... [employer] PRN SQ 02/13/17 23:30 02/16/17 23:29 (Morphine Inj) 2 mg Q3H PRN IV 02/14/17 01:15 02/14/17 09:14 Reported Meds & Active Scripts Active Reported Ferrous Sulfate 325 Mg (65 Mg Iron) Tablet 325 Mg PO DAILY Omeprazole 20 Mg Tab 20 Mg PO DAILY Sucralfate 1 Gram Tab 1 Gm PO TID on empty stomach Metoprolol Tartrate 50 Mg Tab 50 Mg PO BID Atorvastatin (Atorvastatin Calcium) 80 Mg Tab 80 Mg PO HS Amlodipine (Amlodipine Besylate) 2.5 Mg Tab 2.5 Mg PO DAILY Losartan (Losartan Potassium) 25 Mg Tab 25 Mg PO DAILY Social History History of smoking, stopped 40-50 years ago. Physical Exam Vital Signs Vital Signs Date Time Temp Pulse Resp B/P (MAP) Pulse Ox O2 Delivery O2 Flow Rate FiO2 02/14/17 11:44 98.6 98 16 147/54 100 02/14/17 11:41 98.9 98 16 147/54 (85) 100 02/14/17 11:26 97.5 97 18 141/64 (89) 100 02/14/17 11:26 97.5 97 18 141/64 100 02/14/17 11:20 Nasal Cannula 2 02/14/17 08:00 97.0 100 16 93/51 (65) 94 02/14/17 07:25 Room Air 02/14/17 05:01 98.0 70 16 115/60 (78) 97 02/14/17 00:56 97.8 72 18 127/73 (91) 96 02/13/17 21:41 97.7 66 16 108/68 (81) 96 02/13/17 19:37 02/13/17 19:20 79 18 150/69 (96) 93 Room Air 02/13/17 17:46 94 02/13/17 17:45 72 16 153/83 (106) 95 Room Air 02/13/17 15:53 76 18 119/54 (75) 96 02/13/17 15:47 76 18 119/54 (75) 96 Room Air Physical Exam HEENT: Normocephalic bandage from recent sutures, pupils equal round reactive. NECK: Supple. No abnormal masses. Full range of motion. CHEST: Clear to auscultation with no rales or rhonchi's or wheezes. HEART: Regular rate and rhythm. No murmurs. ABDOMEN: Soft, nontender, no masses. Normal active bowel sounds. GENITOURINARY: Deferred MUSCULOSKELETAL: Mild swelling of the right elbow but full range of motion and no crepitus. Right hip with external rotation. In Gipson's traction. Mild ecchymosis. Mild swelling. Moderate pain. Dorsalis pedis and 1+. Sensation normal. No tenderness about the knee or ankle no obvious tenderness to the left leg including hip knee and ankle or left arm shoulder elbow and wrist Laboratory Laboratory Tests Test 02/13/17 15:44 02/13/17 16:40 02/14/17 08:40 02/14/17 09:20 White Blood Count 3.6 5.5 Red Blood Count 2.54 2.09 Hemoglobin 7.9 6.6 Hematocrit 24.3 20.1 Mean Corpuscular Volume 95.7 96.0 Mean Corpuscular Hemoglobin 31.0 31.6 Mean Corpuscular Hemoglobin Concent 32.4 32.9 Red Cell Distribution Width 22.3 21.6 Platelet Count 87 76 Mean Platelet Volume 8.2 8.5 Neutrophils (%) (Auto) 84.9 83.7 Lymphocytes (%) (Auto) 8.7 10.3 Monocytes (%) (Auto) 3.4 3.8 Eosinophils (%) (Auto) 1.2 0.4 Basophils (%) (Auto) 1.8 1.8 Neutrophils # (Auto) 3.0 4.6 Lymphocytes # (Auto) 0.3 0.6 Monocytes # (Auto) 0.1 0.2 Eosinophils # (Auto) 0.0 0.0 Basophils # (Auto) 0.1 0.1 CBC Comment AUTO DIFF AUTO DIFF Differential Comment AUTO DIFF CONFIRMED AUTO DIFF CONFIRMED Platelet Estimate LOW Platelet Morphology Comment NORMAL Ovalocytes 1+ 1+ Acanthocytes 1+ Prothrombin Time 16.2 Prothromb Time International Ratio 1.6 Activated Partial Thromboplast Time 25.8 Blood Urea Nitrogen 22 23 Creatinine 0.92 0.78 Random Glucose 130 122 Total Protein 6.4 6.0 Albumin 3.5 3.2 Calcium Level 8.3 8.0 Alkaline Phosphatase 96 93 Aspartate Amino Transf (AST/SGOT) 21 34 Alanine Aminotransferase (ALT/SGPT) 18 15 Total Bilirubin 1.3 1.5 Sodium Level 140 139 Potassium Level 4.6 4.7 Chloride Level 106 107 Carbon Dioxide Level 25.3 22.9 Anion Gap 9 9 Estimat Glomerular Filtration Rate 78 94 Urine Color YELLOW Urine Turbidity CLEAR Urine pH 6.5 Urine Specific [place] 1.017 Urine Protein TRACE Urine Glucose (UA) NEG Urine Ketones NEG Urine Occult Blood LARGE Urine Nitrite NEG Urine Bilirubin NEG Urine Urobilinogen 2.0 Urine Leukocyte Esterase NEG Urine RBC 77 Urine WBC 1 Urine Mucus FEW Microscopic Urinalysis Comment CATH-CULT NOT IND Result Diagram: 02/14/17 0840 02/14/17 0920 Imaging X-rays reviewed of the pelvis and right hip including the radiologist interpretation shows evidence of a intratrochanteric right hip fracture with mild comminution and varus angulation. Moderate osteopenia is suspect Assessment & Plan Assessment and Plan Right hip peritrochanteric fracture. Anemia. Head laceration. Right elbow contusion. PLAN: Surgical treatment when medically cleared for open treatment internal fixation right hip fracture with intramedullary charmaine. Consent: There are risks with surgery including infection, bleeding, loss of motion, need for further surgery, neurologic or vascular injury. He understands these issues and wishes to proceed forward with surgery as outlined above. Lovenox postoperatively for DVT prophylaxis if satisfactory with medical staff Krish Larose MD Feb 14, 2017 13:12
[2017-02-14] MEDS ORDERED: ONDANSETRON HCL 4 MG/2 ML VIAL IVP PRN (13:15)
[2017-02-14] MEDS ORDERED: ACETAMINOPHEN/HYDROcodone 325 MG/7.5 MG TAB PO PRN (13:15)
[2017-02-14] MEDS ORDERED: ALUMINUM/MAGNESIUM/SIMETH 30 ML CUP PO PRN (13:15)
[2017-02-14] MEDS ORDERED: TEMAZEPAM 15 MG CAP PO PRN (13:15)
[2017-02-14] MEDS ORDERED: MISCELLANEOUS NURSING INFORMATION XX PRN (13:15)
[2017-02-14] MEDS ORDERED: MORPHINE SULFATE 8 MG/ML INJ IM PRN (13:15)
--- NOTE | 2017-02-14 13:15 | PD.OP ---
cc: Krish Larose MD Operative Report Date of Surgery: Feb 14, 2017 Preoperative Diagnosis: Right hip peritrochanteric fracture, displaced, 2 part Postoperative Diagnosis: Same Procedure: Open treatment internal fixation right hip fracture with intramedullary charmaine Anesthesia: Gen. Surgeon: Krish Larose Tube Teller(s): COLLEEN Pritchett Operation and Findings: EBL: 100 cc INDICATION: This patient is an 86-year-old white male with right hip pain after fall yesterday. X-ray shows evidence of a displaced and angulated right peritrochanteric hip fracture which is felt to be a relatively high intertrochanteric fracture. He presents for surgical treatment NOTE: Michelle Pritchett PA-C was present for the entire surgical procedure as my first aid instructor. In my medical opinion her skill and care was necessary for proper management of this patient PROCEDURE: The patient was brought to the operating room and anesthetized in the supine position. He was placed on the fracture table with the right leg held extended. The opposite leg was in the well leg sainz. The hip fracture was reduced anatomically. The hip and leg was scrubbed with alcohol followed by Hibiclens followed by ChloraPrep. A timeout was done and antibiotics were given within 1 hour time window. A longitudinal incision was made over the lateral aspect of the proximal femur. Dissection continued down to the top of the greater trochanter. A cannulated awl was placed down through the top of the greater trochanter followed by placement of the guidepin along the shaft of the femur. This was reamed distally to 1 mm greater than the charmaine size and proximally to 17 mm. A separate incision was made laterally followed by placement of guidepin to the proper position of the femoral head. This is reamed and tapped in the proper length was placed up into the proper location. A single transverse screw was placed distally through the charmaine. Intraoperative x-rays were obtained. Alignment was satisfactory. No complication was noted. The wound was irrigated copiously. Hemostasis was controlled. The fascia was closed with interrupted Vicryl suture, subcutaneous tissue 2-0 Vicryl suture, skin with running intradermal 3-0 Vicryl followed by Steri-Strips and benzoin. A sterile dressing was applied The patient was awakened and taken to the recovery room in satisfactory condition. FINDINGS: There was a comminuted right intertrochanteric hip fracture. Overall alignment was satisfactory. No complication was noted. Krish Larose MD Feb 14, 2017 13:15
[2017-02-14] MEDS ORDERED: HYDR-3580 PO (13:23)
[2017-02-14] MEDS ORDERED: ENOX30P SQ (13:23)
[2017-02-14] MEDS ORDERED: DO NOT ADM ANY ANTICOAGULANT DRUGS PRN (13:27)
[2017-02-14] MEDS: LACTATED RINGER'S 1000 ML INJ 1,000 ML IV SCH (14:00)
[2017-02-14] MEDS ORDERED: Post-op Orders (for Pharmacy) MISC XX ONE (14:30)
[2017-02-14] MEDS ORDERED: FUROSEMIDE 20 MG/2 ML VIAL IV PUSH ONE (14:45)
--- NOTE | 2017-02-14 16:16 | RADRPT ---
EXAM DATE/TIME: 02/14/2017 12:49 [place] COMPARISON: No previous studies available for comparison. INDICATIONS : Right hip fracture repair with trochanteric nail. OR. MEDICAL HISTORY : Hypertension. Carcinoma, prostatic. SURGICAL HISTORY : None. ENCOUNTER: Initial ACUITY: 1 day PAIN SCORE: Non-responsive. LOCATION: Right hip FINDINGS: There are postsurgical changes with operative reduction and internal fixation of the previously seen fracture. The alignment is anatomic. CONCLUSION: Postsurgical changes as above. Danilo Guzman MD on February 14, 2017 at 16:15 Board Certified Radiologist. This report was verified electronically.
--- NOTE | 2017-02-14 16:49 | EKG ---
Date Performed: 02/13/2017 Time Performed: 19:35:14 PTAGE: 86 years EKG: Sinus rhythm WITH FREQUENT SUPRAVENTRICULAR PREMATURE COMPLEXES NONSPECIFIC ST & T-WAVE ABNORMALITY ABNORMAL RHYT HM ECG Since PREVIOUS TRACING , no significant change noted PREVIOUS TRACIN05/11/2010 08.41 DOCTOR: Elmer Obrien Interpretating Date/Time 02/14/2017 16:47:43
[2017-02-14] MEDS: ATORVASTATIN 80 MG TAB PO SCH (20:19)
[2017-02-14] MEDS: MAGNESIUM HYDROXIDE SUSP 30 ML CUP PO SCH (20:20)
[2017-02-14] MEDS: SENNOSIDES 8.6 MG TAB PO SCH (20:20)
[2017-02-14 21:08] LABS: HEMATOCRIT 21.3 % (39.0-51.0)
[2017-02-14 21:40] LABS: REVIEW FLAG FINAL
[2017-02-15] VITALS (9 sets, daily range): BP systolic 90–108; BP diastolic 46–60; PULSE 81–94; RESP 16–18; TEMP 95.5–97.9; O2SAT 93–100
[2017-02-15] MEDS: SODIUM CHLOR 0.9% 1000 ML INJ 1,000 ML IV SCH ×2 (00:46→10:46)
[2017-02-15] MEDS: ENOXAPARIN SODIUM 30 MG/0.3 ML SYRINGE SQ SCH (01:50)
[2017-02-15] MEDS: LACTATED RINGER'S 1000 ML INJ 1,000 ML IV SCH ×2 (02:30→15:00)
--- NOTE | 2017-02-15 08:08 | PD.ORT.PN ---
Subjective Post Op Day #: 1 Subjective Remarks Patient appears comfortable. Lying in bed. Pain well controlled Objective Vitals Vital Signs Date Time Temp Pulse Resp B/P (MAP) Pulse Ox O2 Delivery O2 Flow Rate FiO2 02/15/17 04:00 96.7 87 16 96/60 (72) 95 02/15/17 00:00 97.9 81 17 93/56 (68) 93 02/14/17 21:20 94 Nasal Cannula 3.00 02/14/17 20:20 Nasal Cannula 2.00 02/14/17 20:00 96.5 76 16 98/54 (69) 100 02/14/17 14:30 96.0 68 16 104/55 (71) 100 02/14/17 14:20 Nasal Cannula 2.00 02/14/17 14:00 78 18 118/59 (78) 100 Nasal Cannula 2 02/14/17 13:45 85 18 125/65 (85) 100 Nasal Cannula 3 02/14/17 13:30 91 18 129/71 (90) 100 Nasal Cannula 3 02/14/17 13:28 97.9 95 18 123/74 (90) 100 Nasal Cannula 3 02/14/17 11:44 98.6 98 16 147/54 100 02/14/17 11:41 98.9 98 16 147/54 (85) 100 02/14/17 11:26 97.5 97 18 141/64 (89) 100 02/14/17 11:26 97.5 97 18 141/64 100 02/14/17 11:20 Nasal Cannula 2 I/O 02/14/17 02/14/17 02/14/17 02/15/17 02/15/17 02/15/17 07:00 15:00 23:00 07:00 15:00 23:00 Intake Total 3423 ml 480 ml 240 ml Output Total 100 ml Balance 3323 ml 480 ml 240 ml Intake Oral 480 ml 240 ml IV Total 1000 ml Packed Cells 1400 ml FFP 673 ml Platelets 290 ml Blood Product IV Normal Saline Flush 60 ml Estimated Blood Loss 100 ml # Voids 2 3 Result Diagram: 02/14/17203102/14/17919 Objective Remarks Dressing dry. Mild thigh swelling. No abnormal distal swelling or calf tenderness. Sensation normal. Dorsalis pedis 1+ Assessment & Plan Ortho Post Op Day #: 1 Problem List: Assessment and Plan Right hip peritrochanteric fracture. Anemia. Head laceration. Right elbow contusion. ORIF right hip fracture with trochanteric nail: POD #1 PLAN: Toe touch weightbearing. No dressing change. Lovenox for DVT prophylaxis if agreeable with medical staff. [place] for pain. Prescriptions written 3008 filled out. Probable discharge to custodial facility on Saturday or Saturday, when medically clear. Follow-up in 2 weeks Krish Larose MD Feb 15, 2017 08:08
[2017-02-15 08:28] LABS: MEAN CELL VOLUME 91.8 FL (80.0-100.0); MEAN CORPUSCULAR HEMOGLOBIN 31.7 PG (27.0-34.0); MEAN CORPUSCULAR HGB CONC 34.6 % (32.0-36.0); PLATELET COUNT 75 TH/MM3 (150-450); RED BLOOD COUNT 2.19 MIL/MM3 (4.50-5.90); RED CELL DISTRIBUTION WIDTH 19.3 % (11.6-17.2); WHITE BLOOD COUNT 4.4 TH/MM3 (4.0-11.0)
[2017-02-15 08:47] LABS: REVIEW FLAG FINAL
[2017-02-15 08:52] LABS: HEMATOCRIT 20.1 % (39.0-51.0)
[2017-02-15 08:53] LABS: BICARBONATE 28.9 MEQ/L (21.0-32.0); POTASSIUM 4.7 MEQ/L (3.5-5.1)
[2017-02-15] MEDS ORDERED: SODIUM CHLOR 0.9% 250 ML INJ 250 ML IV ONE (09:00)
[2017-02-15] MEDS: SODIUM CHLORIDE 0.9% FLUSH 10 ML FLUSH IV FLUSH SCH ×2 (09:00→21:57)
--- NOTE | 2017-02-15 09:05 | HHI.FPPN ---
Subjective Remarks No acute events overnight. Afebrile, vitals stable. Patient seen and examined this morning. Patient states his pain is well-controlled. He denies any fevers, CP, SOB, cough. (Qasim Guzmán MD R2) Objective Vitals Vital Signs Date Time Temp Pulse Resp B/P (MAP) Pulse Ox O2 Delivery O2 Flow Rate FiO2 02/15/17 07:58 96.2 91 18 92/55 (67) 94 02/15/17 04:00 96.7 87 16 96/60 (72) 95 02/15/17 00:00 97.9 81 17 93/56 (68) 93 02/14/17 21:20 94 Nasal Cannula 3.00 02/14/17 20:20 Nasal Cannula 2.00 02/14/17 20:00 96.5 76 16 98/54 (69) 100 02/14/17 14:30 96.0 68 16 104/55 (71) 100 02/14/17 14:20 Nasal Cannula 2.00 02/14/17 14:00 78 18 118/59 (78) 100 Nasal Cannula 2 02/14/17 13:45 85 18 125/65 (85) 100 Nasal Cannula 3 02/14/17 13:30 91 18 129/71 (90) 100 Nasal Cannula 3 02/14/17 13:28 97.9 95 18 123/74 (90) 100 Nasal Cannula 3 02/14/17 11:44 98.6 98 16 147/54 100 02/14/17 11:41 98.9 98 16 147/54 (85) 100 02/14/17 11:26 97.5 97 18 141/64 (89) 100 02/14/17 11:26 97.5 97 18 141/64 100 02/14/17 11:20 Nasal Cannula 2 I/O 02/14/17 02/14/17 02/14/17 02/15/17 02/15/17 02/15/17 07:00 15:00 23:00 07:00 15:00 23:00 Intake Total 3423 ml 480 ml 240 ml Output Total 100 ml Balance 3323 ml 480 ml 240 ml Intake Oral 480 ml 240 ml IV Total 1000 ml Packed Cells 1400 ml FFP 673 ml Platelets 290 ml Blood Product IV Normal Saline Flush 60 ml Estimated Blood Loss 100 ml # Voids 2 3 (Qasim Guzmán MD R2) Result Diagram: 02/15/17 0755 02/15/17 0755 Objective Remarks GENERAL: Alert, NAD, pleasant SKIN: No rashes, but has significant ecchymoses of the digits of his right hand as well as the wrist. Dressing intact on right wrist and right elbow. HEAD: Dressing on head from scalp laceration. EYES: EOMI. No conjunctival injection or drainage. Palpebral conjunctiva pale ENT: MMM NECK: Supple, no lymphadenopathy. CARDIOVASCULAR: NRRR. Normal S1/S2. No MRG RESPIRATORY: CTAB, no w/r/r GASTROINTESTINAL: Abdomen soft, non-distended, non-tender. No hepato- splenomegaly or palpable masses. 2 point tattoos midline lower abdomen MUSCULOSKELETAL: Extremities without edema. Does have significant ecchymoses of the right hand and fingers. NEUROLOGICAL: Awake and alert. Cranial nerves grossly intact. Normal speech. (Qasim Guzmán MD R2) A/P Assessment and Plan 86 year old male admitted due to a right hip fracture. Discharge Planning Anticipate discharge to [facility] on 02/16 (Qasim Guzmán MD R2) Attending Attestation Patient seen and examined. Case reviewed and discussed with the resident team. Agree with plan of care as discussed with me and documented in the resident note. (Haley Stroud MD) Problem List: (1) Hip fracture ICD Codes: S72.009A - Fracture of unspecified part of neck of unspecified femur , initial encounter for closed fracture Status: Acute Plan: s/p ORIF right hip fracture on 02/14 Lovenox for DVT prophylaxis per orthopedic surgery recommendations Continue norco 7.5/325 po q4h prn pain (2) Hypertension ICD Codes: I10 - Essential (primary) hypertension Status: Chronic Plan: Hold home BP meds due to low blood pressure Consider restarting single agent if needed Continue to monitor vitals q4h (3) Pancytopenia ICD Codes: D61.818 - Other pancytopenia Status: Chronic Plan: Patient has a history of pancytopenia and was seen by oncology during a previous hospitalization in 11/2015 Spoke with son and the patient regarding his pancytopenia and if a provider had been monitoring this Patient will require outpatient follow-up with his primary care physician and neurologist for monitoring of cell counts Hgb 7.0 this AM 02/15 Will transfuse additional 1 unit PRBCs today Lasix 20 mg IV x1 following transfusion s/p 2 units PRBCs, 1 unit FFP, 1 unit platelets previously on 02/14 Follow up H/H following transfusion Monitor CBC tomorrow Continue ferrous sulfate 325 mg po daily Consider further investigation or GI workup if hemoglobin not uptrending appropriately (4) Hyperlipidemia ICD Codes: E78.5 - Hyperlipidemia, unspecified Status: Chronic Plan: Continue home atorvastatin (5) Hematuria ICD Codes: R31.9 - Hematuria, unspecified Status: Chronic Plan: Patient has a history of prostate cancer s/p radiation therapy and chronic hematuria following No other concerning symptoms at this time Continue to follow (6) FEN/PPX Status: Acute Plan: Fluids: PO Electrolytes: monitor and replace as needed Nutrition: Regular diet, NPO at midnight PPX: SCDs now. Pharm ppx per orthopedic surgery (Qasim Guzmán MD R2) Problem Qualifiers (1) Hip fracture: Qualified Codes: S72.001A - Fracture of unspecified part of neck of right femur , initial encounter for closed fracture (2) Hypertension: Qualified Codes: I10 - Essential (primary) hypertension (3) Hyperlipidemia: Qualified Codes: E78.5 - Hyperlipidemia, unspecified Qasim Guzmán MD R2 Feb 15, 2017 09:05 Haley Stroud MD Feb 15, 2017 16:01
[2017-02-15] MEDS: amLODIPine BESYLATE 5 MG TAB PO SCH (09:17)
[2017-02-15] MEDS: MAGNESIUM HYDROXIDE SUSP 30 ML CUP PO SCH ×2 (09:17→22:04)
[2017-02-15] MEDS: DOCUSATE SODIUM 50 MG/SENNA 8.6 MG TAB PO SCH ×2 (09:18→21:56)
[2017-02-15] MEDS: SUCRALFATE 1 GM TAB PO SCH ×3 (09:18→18:38)
[2017-02-15] MEDS: LOSARTAN 25 MG TAB PO SCH (09:18)
[2017-02-15] MEDS: FERROUS SULFATE 325 MG (65 MG ELEMENTAL IRON) TAB PO SCH (09:18)
[2017-02-15] MEDS: PANTOPRAZOLE SOD 20 MG DELAYED RELEASE TAB PO SCH (09:18)
[2017-02-15] MEDS: METOPROLOL TARTRATE 50 MG TAB PO SCH (09:18)
[2017-02-15] MEDS: ACETAMINOPHEN/HYDROcodone 325 MG/7.5 MG TAB PO PRN (09:19)
[2017-02-15] MEDS ORDERED: FUROSEMIDE 20 MG/2 ML VIAL IV PUSH ONE (10:00)
[2017-02-15 20:08] LABS: HEMATOCRIT 23.6 % (39.0-51.0)
[2017-02-15 20:09] LABS: REVIEW FLAG FINAL
[2017-02-15] MEDS: ATORVASTATIN 80 MG TAB PO SCH (21:57)
[2017-02-15] MEDS: SENNOSIDES 8.6 MG TAB PO SCH (22:04)
[2017-02-16] VITALS (7 sets, daily range): BP systolic 95–114; BP diastolic 51–58; PULSE 72–113; RESP 16–18; TEMP 96.1–98.6; O2SAT 92–100
[2017-02-16] MEDS: ENOXAPARIN SODIUM 30 MG/0.3 ML SYRINGE SQ SCH (01:46)
[2017-02-16 07:17] LABS: HEMATOCRIT 22.7 % (39.0-51.0); MEAN CELL VOLUME 89.5 FL (80.0-100.0); MEAN CORPUSCULAR HEMOGLOBIN 30.4 PG (27.0-34.0); PLATELET COUNT 70 TH/MM3 (150-450); RED BLOOD COUNT 2.54 MIL/MM3 (4.50-5.90); RED CELL DISTRIBUTION WIDTH 19.6 % (11.6-17.2); WHITE BLOOD COUNT 5.4 TH/MM3 (4.0-11.0)
[2017-02-16 07:29] LABS: REVIEW FLAG FINAL
--- NOTE | 2017-02-16 07:41 | PD.ORT.PN ---
Subjective Subjective Remarks pt has no complaints this morning Objective Vitals Vital Signs Date Time Temp Pulse Resp B/P (MAP) Pulse Ox O2 Delivery O2 Flow Rate FiO2 02/16/17 04:00 98.6 88 16 101/57 (72) 97 02/16/17 00:00 96.1 72 17 95/51 (66) 99 02/15/17 22:00 Nasal Cannula 3.00 02/15/17 20:00 97.7 90 18 108/55 (72) 97 02/15/17 17:53 97 Nasal Cannula 3.00 02/15/17 16:00 95.9 87 16 91/54 (66) 99 02/15/17 14:25 95.5 90 16 104/50 97 02/15/17 11:35 96.8 94 16 94/51 100 02/15/17 11:35 96.8 94 16 94/51 (65) 100 02/15/17 11:20 95.6 89 16 90/46 94 02/15/17 07:58 96.2 91 18 92/55 (67) 94 I/O 02/15/17 02/15/17 02/15/17 02/16/17 02/16/17 02/16/17 07:00 15:00 23:00 07:00 15:00 23:00 Intake Total 240 ml 900 ml 360 ml 240 ml Balance 240 ml 900 ml 360 ml 240 ml Intake Oral 240 ml 480 ml 360 ml 240 ml Packed Cells 400 ml Blood Product IV Normal Saline Flush 20 ml # Voids 3 5 2 3 # Bowel Movements 0 Result Diagram: 02/16/17 0607 02/15/17 0755 Objective Remarks Seen by Dr. Abdulkadir Larose Dressing dry. Mild thigh swelling. No abnormal distal swelling or calf tenderness. Sensation normal. Dorsalis pedis 1+ Assessment & Plan Assessment and Plan Right hip peritrochanteric fracture. Anemia. Head laceration. Right elbow contusion. ORIF right hip fracture with trochanteric nail: POD #2 PLAN: Toe touch weightbearing. No dressing change. Lovenox for DVT prophylaxis if agreeable with medical staff. [place] for pain. Prescriptions written 3008 filled out. Probable discharge to detention facility today if medically stable. Follow-up in 2 weeks Iwona Moreira Feb 16, 2017 07:41
--- NOTE | 2017-02-16 09:32 | HHI.FPPN ---
Subjective Remarks No acute events overnight. Afebrile, BPs ranging 90s-110s/50s. Patient seen and examined this AM. Patient states he is feeling well overall. Pain is on average a 6-7/10. Denies fevers/chills, CP, SOB, abdominal pain. No issues voiding. Tolerating diet. (Qasim Guzmán MD R2) Objective Vitals Vital Signs Date Time Temp Pulse Resp B/P (MAP) Pulse Ox O2 Delivery O2 Flow Rate FiO2 02/16/17 07:51 96.1 83 17 110/58 (75) 99 02/16/17 04:00 98.6 88 16 101/57 (72) 97 02/16/17 00:00 96.1 72 17 95/51 (66) 99 02/15/17 22:00 Nasal Cannula 3.00 02/15/17 20:00 97.7 90 18 108/55 (72) 97 02/15/17 17:53 97 Nasal Cannula 3.00 02/15/17 16:00 95.9 87 16 91/54 (66) 99 02/15/17 14:25 95.5 90 16 104/50 97 02/15/17 11:35 96.8 94 16 94/51 100 02/15/17 11:35 96.8 94 16 94/51 (65) 100 02/15/17 11:20 95.6 89 16 90/46 94 I/O 02/15/17 02/15/17 02/15/17 02/16/17 02/16/17 02/16/17 07:00 15:00 23:00 07:00 15:00 23:00 Intake Total 240 ml 900 ml 360 ml 240 ml Balance 240 ml 900 ml 360 ml 240 ml Intake Oral 240 ml 480 ml 360 ml 240 ml Packed Cells 400 ml Blood Product IV Normal Saline Flush 20 ml # Voids 3 5 2 3 # Bowel Movements 0 (Qasim Guzmán MD R2) Result Diagram: 02/16/17 0607 02/15/17 0755 Objective Remarks GENERAL: Alert, NAD, pleasant SKIN: No rashes, but has significant ecchymoses of the digits of his right hand as well as the wrist. Dressing intact on right wrist and right elbow. HEAD: Dressing on head from scalp laceration. EYES: EOMI. No conjunctival injection or drainage. Palpebral conjunctiva pale ENT: MMM NECK: Supple, no lymphadenopathy. CARDIOVASCULAR: NRRR. Normal S1/S2. No MRG RESPIRATORY: CTAB, no w/r/r GASTROINTESTINAL: Abdomen soft, non-distended, non-tender. No hepato- splenomegaly or palpable masses. 2 point tattoos midline lower abdomen MUSCULOSKELETAL: Extremities without edema. Does have significant ecchymoses of the right hand and fingers. NEUROLOGICAL: Awake and alert. Cranial nerves grossly intact. Normal speech. (Qasim Guzmán MD R2) A/P Assessment and Plan 86 year old male admitted due to a right hip fracture. Discharge Planning Anticipate discharge to [facility] on 02/16 (Qasim Guzmán MD R2) Attending Attestation Patient seen and examined. Case reviewed and discussed with the resident team. Agree with plan of care as discussed with me and documented in the resident note. (Haley Stroud MD) Problem List: (1) Hip fracture ICD Codes: S72.009A - Fracture of unspecified part of neck of unspecified femur , initial encounter for closed fracture Status: Acute Plan: s/p ORIF right hip fracture on 02/14 Lovenox for DVT prophylaxis per orthopedic surgery recommendations Continue norco 7.5/325 po q4h prn pain Rosette-colace bid (2) Hypertension ICD Codes: I10 - Essential (primary) hypertension Status: Chronic Plan: Continue to hold home antihypertensives due to low blood pressure Consider restarting single agent if needed Continue to monitor vitals q4h (3) Pancytopenia ICD Codes: D61.818 - Other pancytopenia Status: Chronic Plan: Patient has a history of pancytopenia and was seen by oncology during a previous hospitalization in 11/2015 Spoke with son and the patient regarding his pancytopenia and if a provider had been monitoring this Patient will require outpatient follow-up with his primary care physician and neurologist for monitoring of cell counts s/p 3 units PRBCs, 1 unit FFP, 1 unit platelets previously on 02/14 Hgb uptrending appropriately, stable, 7.7 this AM Continue ferrous sulfate 325 mg po daily (4) Hyperlipidemia ICD Codes: E78.5 - Hyperlipidemia, unspecified Status: Chronic Plan: Continue home atorvastatin (5) Hematuria ICD Codes: R31.9 - Hematuria, unspecified Status: Chronic Plan: Patient has a history of prostate cancer s/p radiation therapy and chronic hematuria following No other urinary complaints at this time Continue to follow (6) FEN/PPX Status: Acute Plan: Fluids: PO Electrolytes: WNL 02/15 Nutrition: Regular diet DVT ppx: Lovenox (Qasim Guzmán MD R2) Problem Qualifiers (1) Hip fracture: Qualified Codes: S72.001A - Fracture of unspecified part of neck of right femur , initial encounter for closed fracture (2) Hypertension: Qualified Codes: I10 - Essential (primary) hypertension (3) Hyperlipidemia: Qualified Codes: E78.5 - Hyperlipidemia, unspecified Qasim Guzmán MD R2 Feb 16, 2017 09:32 Haley Stroud MD Feb 16, 2017 11:34
[2017-02-16] MEDS: MAGNESIUM HYDROXIDE SUSP 30 ML CUP PO SCH (10:01)
[2017-02-16] MEDS: PANTOPRAZOLE SOD 20 MG DELAYED RELEASE TAB PO SCH (10:01)
[2017-02-16] MEDS: FERROUS SULFATE 325 MG (65 MG ELEMENTAL IRON) TAB PO SCH (10:01)
[2017-02-16] MEDS: SUCRALFATE 1 GM TAB PO SCH ×3 (10:01→18:00)
[2017-02-16] MEDS: DOCUSATE SODIUM 50 MG/SENNA 8.6 MG TAB PO SCH (10:01)
[2017-02-16] MEDS: ACETAMINOPHEN/HYDROcodone 325 MG/7.5 MG TAB PO PRN (10:02)
[2017-02-16] MEDS: SODIUM CHLORIDE 0.9% FLUSH 10 ML FLUSH IV FLUSH SCH (10:02)
--- NOTE | 2017-02-16 10:20 | HHI.DS ---
Discharge Summary Admission Date Feb 13, 2017 at 18:21 Discharge Date: Feb 16, 2017 Admitting Diagnosis right hip fracture, fall, close head injury (1) Hip fracture Diagnosis: Principal Plan: s/p ORIF right hip fracture on 02/14 Lovenox for DVT prophylaxis per orthopedic surgery recommendations Continue norco 7.5/325 po q4h prn pain Rosette-colace bid ICD Codes: S72.009A - Fracture of unspecified part of neck of unspecified femur , initial encounter for closed fracture Status: Acute (2) Hypertension Diagnosis: Secondary Plan: Continue to hold home antihypertensives due to low blood pressure Consider restarting single agent if needed Continue to monitor vitals q4h ICD Codes: I10 - Essential (primary) hypertension Status: Chronic (3) Pancytopenia Diagnosis: Secondary Plan: Patient has a history of pancytopenia and was seen by oncology during a previous hospitalization in 11/2015 Spoke with son and the patient regarding his pancytopenia and if a provider had been monitoring this Patient will require outpatient follow-up with his primary care physician and neurologist for monitoring of cell counts s/p 3 units PRBCs, 1 unit FFP, 1 unit platelets previously on 02/14 Hgb uptrending appropriately, stable, 7.7 this AM Continue ferrous sulfate 325 mg po daily ICD Codes: D61.818 - Other pancytopenia Status: Chronic (4) Hyperlipidemia Diagnosis: Secondary Plan: Continue home atorvastatin ICD Codes: E78.5 - Hyperlipidemia, unspecified Status: Chronic (5) Hematuria Diagnosis: Secondary Plan: Patient has a history of prostate cancer s/p radiation therapy and chronic hematuria following No other urinary complaints at this time Continue to follow ICD Codes: R31.9 - Hematuria, unspecified Status: Chronic (6) FEN/PPX Diagnosis: Secondary Plan: Fluids: PO Electrolytes: WNL 02/15 Nutrition: Regular diet DVT ppx: Lovenox Status: Acute Consultants Orthopedic surgery Brief History 86-year-old male being seen for right hip fracture. Earlier today he was lifting a "hand truck" and placement into the back of vehicle when he lost his balance and fell. He fell on his right hip, elbow and head. He did not lose consciousness. Per the ED, he had a laceration on his right scalp that required stitching. The patient complains of pain at his right hip and where he landed on his head. Otherwise, he is without complaint. He denies chest pain, nausea, vomiting, fever, chills, confusion. CBC/BMP: 02/16/17 0607 02/15/17 0755 Significant Findings Laboratory Tests Test 02/13/17 15:44 02/13/17 16:40 02/14/17 08:40 02/14/17 09:20 White Blood Count 3.6 TH/MM3 (4.0-11.0) Red Blood Count 2.54 MIL/MM3 (4.50-5.90) 2.09 MIL/MM3 (4.50-5.90) Hemoglobin 7.9 GM/DL (13.0-17.0) 6.6 GM/DL (13.0-17.0) Hematocrit 24.3 % (39.0-51.0) 20.1 % (39.0-51.0) Red Cell Distribution Width 22.3 % (11.6-17.2) 21.6 % (11.6-17.2) Platelet Count 87 TH/MM3 (150-450) 76 TH/MM3 (150-450) Neutrophils (%) (Auto) 84.9 % (16.0-70.0) 83.7 % (16.0-70.0) Lymphocytes (%) (Auto) 8.7 % (9.0-44.0) Lymphocytes # (Auto) 0.3 TH/MM3 (1.0-4.8) 0.6 TH/MM3 (1.0-4.8) Platelet Estimate LOW (NORMAL) Ovalocytes 1+ (NORMAL) 1+ (NORMAL) Acanthocytes 1+ (NORMAL) Prothrombin Time 16.2 SEC (9.8-11.6) Blood Urea Nitrogen 22 MG/DL (7-18) 23 MG/DL (7-18) Random Glucose 130 MG/DL (74-106) 122 MG/DL (74-106) Calcium Level 8.3 MG/DL (8.5-10.1) 8.0 MG/DL (8.5-10.1) Total Bilirubin 1.3 MG/DL (0.2-1.0) 1.5 MG/DL (0.2-1.0) Estimat Glomerular Filtration Rate 78 ML/MIN (>89) Urine Occult Blood LARGE (NEG) Urine RBC 77 /hpf (0-3) Urine Mucus FEW /lpf (OCC) Total Protein 6.0 GM/DL (6.4-8.2) Albumin 3.2 GM/DL (3.4-5.0) Test 02/14/17 20:32 02/15/17 07:55 02/15/17 19:12 02/16/17 06:07 Hemoglobin 7.4 GM/DL (13.0-17.0) 7.0 GM/DL (13.0-17.0) 7.8 GM/DL (13.0-17.0) 7.7 GM/DL (13.0-17.0) Hematocrit 21.3 % (39.0-51.0) 20.1 % (39.0-51.0) 23.6 % (39.0-51.0) 22.7 % (39.0-51.0) Red Blood Count 2.19 MIL/MM3 (4.50-5.90) 2.54 MIL/MM3 (4.50-5.90) Red Cell Distribution Width 19.3 % (11.6-17.2) 19.6 % (11.6-17.2) Platelet Count 75 TH/MM3 (150-450) 70 TH/MM3 (150-450) Blood Urea Nitrogen 25 MG/DL (7-18) Random Glucose 125 MG/DL (74-106) Calcium Level 8.0 MG/DL (8.5-10.1) Imaging Hip/pelvis x-ray 02/13: fractured right femoral neck PE at Discharge GENERAL: Alert, NAD, pleasant SKIN: No rashes, but has significant ecchymoses of the digits of his right hand as well as the wrist. Dressing intact on right wrist and right elbow. HEAD: Dressing on head from scalp laceration. EYES: EOMI. No conjunctival injection or drainage. Palpebral conjunctiva pale ENT: MMM NECK: Supple, no lymphadenopathy. CARDIOVASCULAR: NRRR. Normal S1/S2. No MRG RESPIRATORY: CTAB, no w/r/r GASTROINTESTINAL: Abdomen soft, non-distended, non-tender. No hepato- splenomegaly or palpable masses. 2 point tattoos midline lower abdomen MUSCULOSKELETAL: Extremities without edema. Does have significant ecchymoses of the right hand and fingers. NEUROLOGICAL: Awake and alert. Cranial nerves grossly intact. Normal speech. Hospital Course Patient found to be pancytopenic on admission. Patient required transfusion of 2 units PRBCs on 02/14 due to HGb of 6.6. Also given 1 unit of FFP and 1 unit of platelets. Patient required an additional unit of PRBCs with Hgb remaining stable thereafter. Patient had been evaluated for pancytopenia in 11/2015 by heme/onc and thought at that time was there may have been exit radiation to the bone marrow resulting in decreased marrow synthesis following radiation exposure to his prostate for prostate cancer. He has a history of iron deficiency anemia as well. Patient will need outpatient follow up with his primary care physician once stable after rehab and require periodic monitoring of cell counts. Orthopedic surgery was consulted and patient underwent ORIF of his right hip fracture on 02/14. Pt Condition on Discharge: Stable Discharge Instructions Follow up Referrals: PCP Follow-up - 1 Week New Orders: CBC WITH DIFF - 2-3 Days New Medications: Enoxaparin Inj (Lovenox Inj) 30 Mg/0.3 Ml Syr 30 MG SQ Q24H for Prevent Blood Clot, #28 INJECTION Hydrocodone/Acetaminophen (Hydrocodone-Acetamin 7.5-325) 7.5 Mg-325 Mg Tablet 1 TAB PO Q4H PRN for pain, #40 TAB Sennosides-Docusate Sodium (Gnp Senna Plus 8.6-50 mg) 8.6 Mg-50 Mg Tab 1 TAB PO BID, #60 TAB Continued Medications: Atorvastatin (Atorvastatin) 80 Mg Tab 80 MG PO HS for Cholesterol Management, #30 TAB 0 Refills Ferrous Sulfate (Ferrous Sulfate) 325 Mg (65 Mg Iron) Tablet 325 MG PO DAILY for Nutritional Supplement, #30 TAB 0 Refills Omeprazole (Omeprazole) 20 Mg Tab 20 MG PO DAILY, #30 TAB 0 Refills Sucralfate (Sucralfate) 1 Gram Tab 1 GM PO TID for Duodenal ulcer, #90 TAB 0 Refills on empty stomach Discontinued Medications: Amlodipine (Amlodipine) 2.5 Mg Tab 2.5 MG PO DAILY for Blood Pressure Management, #30 TAB 0 Refills Losartan (Losartan) 25 Mg Tab 25 MG PO DAILY for Blood Pressure Management, #30 TAB 0 Refills Metoprolol Tartrate (Metoprolol Tartrate) 50 Mg Tab 50 MG PO BID, #60 TAB 0 Refills Qasim Guzmán MD R2 Feb 16, 2017 10:20
[2017-02-16] MEDS ORDERED: PERI PO (11:03)
--- NOTE | 2017-02-16 11:04 | HHI.DCPOC ---
Discharge Care Plan Diagnosis: (1) Hip fracture (2) Pancytopenia Goals to Promote Your Health * To prevent worsening of your condition and complications, continue physical therapy at [facility] and continue to monitor your blood counts. Directions to Meet Your Goals Take your medications as prescribed Follow your dietary instruction Follow activity as directed Keep your appointments as scheduled Take your immunizations and boosters as scheduled If your symptoms worsen call your PCP, if no PCP go to Urgent Care Center or Emergency Room Smoking is Dangerous to Your Health. Avoid second hand smoke Call the 24-hour hour crisis hotline for domestic abuse at Qasim Guzmán MD R2 Feb 16, 2017 11:04
[2017-02-16] MEDS ORDERED: POLYETHYLENE GLYCOL 17 GM PKG PO PRN (13:15)
== END 2017-02-16 20:39 | DRG 481 ==
LOC: NEPE 14:49 → NEDA 18:21 → N06A 19:57
PROVIDERS: ADMIT Family Medicine; ATTEND Family Medicine
PROC: 30233K1 Transfusion of Nonautologous Frozen Plasma into Peripheral Vein, Percutaneous Approach (ICD-10-PCS; 2017-02-14)
PROC: 30233N1 Transfusion of Nonautologous Red Blood Cells into Peripheral Vein, Percutaneous Approach (ICD-10-PCS; 2017-02-14)
PROC: 6A550Z2 Pheresis of Platelets, Single (ICD-10-PCS; 2017-02-14)
PROC: 0QS606Z Reposition Right Upper Femur with Intramedullary Internal Fixation Device, Open Approach (ICD-10-PCS; principal; 2017-02-14 11:46)
DX: S72.141A Displaced intertrochanteric fracture of right femur, initial encounter for closed fracture (principal); D61.818 Other pancytopenia; E11.9 Type 2 diabetes mellitus without complications; I10 Essential (primary) hypertension; S01.01XA Laceration without foreign body of scalp, initial encounter; S50.01XA Contusion of right elbow, initial encounter; W01.0XXA Fall on same level from slipping, tripping and stumbling without subsequent striking against object, initial encounter; Y93.89 Activity, other specified; Y92.009 Unspecified place in unspecified non-institutional (private) residence as the place of occurrence of the external cause; K44.9 Diaphragmatic hernia without obstruction or gangrene; K21.9 Gastro-esophageal reflux disease without esophagitis; E78.00 Pure hypercholesterolemia, unspecified; H91.90 Unspecified hearing loss, unspecified ear; Z66 Do not resuscitate; M85.80 Other specified disorders of bone density and structure, unspecified site; R31.9 Hematuria, unspecified; Z87.891 Personal history of nicotine dependence; Z85.46 Personal history of malignant neoplasm of prostate; Z92.3 Personal history of irradiation
CPT/HCPCS: 36430; 70450; 71010; 73502; 76000; 80048; 80053; 81001; 85014; 85018; 85025; 85027; 85610; 85730; 86850; 86900; 86901; 86920; 86927; 93005; 94150; 96374; 96375; J0131; J0690; J1580; J1650; J2270; J2405; J7030; J7050; P9016; P9017; P9035